=== PATIENT | male | born 1940 | race Hispanic/Latino ===

== ENCOUNTER 2021-04-17 20:26 | Emergency (ER) | payer MEDICARE ==
--- NOTE | 2021-04-17 21:38 | Emergency Department Report ---
ED Psych HPI - General Chief Complaint: Psych Stated Complaint: SUICIDAL/DEMENTIA/MH EVAL Time Seen by Provider: 04/17/21 21:33 Source: patient Mode of arrival: Ambulatory Limitations: No Limitations - History of Present Illness Initial Comments: Patient is an 80-year-old male that presents emergency room with altered mental status, dementia, agitation, suicidal ideation with a plan. Patient is currently alert and oriented x2. Patient is disoriented to time and situation. History per patient and son that is sitting at bedside. Son states that the patient is from [place] but the patient recently moved to the patient's daughter's house here in [place]. Patient was moved from [place] here because the patient was found wandering multiple times around his cabin in [place] and found driving disoriented and lost in the town that he lives in there. Patient was taken to the hospital there and [place] and was deemed medically clear but having worsening dementia and behavioral disorder. Patient was then moved here to [place] and the patient is having the same problem with his family members. Patient was [place] Patient is agitated towards his family members. Patient is aggressive towards family. Patient was brought in by his son for stabilization. Son states that the patient also threatened to kill himself by overdosing on his pills. Patient denies homicidal ideations. Patient states he did say that he might have said that but does not quite remember. Patient states he does not want to live with his daughter and wants to go back to his house in [place] or [place]. Patient denies recent travel. Patient denies recent international travel. Pat ient denies exposure to the novel coronavirus. Patient denies sick contacts. Patient denies fever and chills. Patient denies cough. Patient denies diarrhea. Patient denies coming in contact with anybody with symptoms of the novel coronavirus. MD Complaint: suicidal ideation, feels depressed, altered mental status -: Sudden Associated Psychiatric Symptoms: none, suicidal ideation History of same: Yes Quality: constant Improves With: none Worsens With: none Context: significant life stressor Associated Symptoms: confusion. denies: headache, shortness of breath, nausea, vomiting, syncope, insomnia If Self Harm: admits thoughts of, has plan - Related Data Home Medications Medication Instructions Recorded Confirmed Last Taken Aspirin [Aspirin BABY CHEW TAB] 81 mg PO QDAY 04/18/21 04/18/21 04/18/21 AtorvaSTATin [Lipitor] 40 mg PO QHS 04/18/21 04/18/21 Unknown Clopidogrel [Plavix] 75 mg PO QDAY 04/18/21 04/18/21 04/18/21 OLANzapine [ZyPREXA] 5 mg PO BID 04/18/21 04/18/21 04/18/21 amLODIPine 10 mg PO DAILY 04/18/21 04/18/21 04/18/21 Allergies Allergy/AdvReac Type Severity Reaction Status Date / Time No Known Allergies Allergy Unverified 04/17/21 20:42 ED Review of Systems ROS: Stated complaint: SUICIDAL/DEMENTIA/MH EVAL Other details as noted in HPI Constitutional: denies: chills, fever Eyes: denies: eye pain, eye discharge, vision change ENT: denies: ear pain, throat pain Respiratory: denies: cough, shortness of breath, wheezing Cardiovascular: denies: chest pain, palpitations Endocrine: no symptoms reported Gastrointestinal: denies: abdominal pain, nausea, diarrhea Genitourinary: denies: urgency, dysuria Musculoskeletal: denies: back pain, joint swelling, arthralgia Skin: denies: rash, lesions Neurological: denies: headache, weakness, paresthesias Psychiatric: as per HPI, depression, suicidal thoughts. denies: anxiety Hematological/Lymphatic: denies: easy bleeding, easy bruising ED Past Medical Hx - Past Medical History Previous Medical History?: Yes Hx Hypertension: Yes Hx Diabetes: No Hx Dementia: Yes - Surgical History Past Surgical History?: No - Family History Family history: no significant - Social History Smoking Status: Never Smoker Substance Use Type: None - Medications Home Medications: Home Medications Medication Instructions Recorded Confirmed Last Taken Type Aspirin [Aspirin BABY CHEW TAB] 81 mg PO QDAY 04/18/21 04/18/21 04/18/21 History AtorvaSTATin [Lipitor] 40 mg PO QHS 04/18/21 04/18/21 Unknown History Clopidogrel [Plavix] 75 mg PO QDAY 04/18/21 04/18/21 04/18/21 History OLANzapine [ZyPREXA] 5 mg PO BID 04/18/21 04/18/21 04/18/21 History amLODIPine 10 mg PO DAILY 04/18/21 04/18/21 04/18/21 History ED Physical Exam - General Limitations: No Limitations General appearance: alert, in no apparent distress - Head Head exam: Present: atraumatic, normocephalic - Eye Eye exam: Present: normal appearance - ENT ENT exam: Present: mucous membranes moist - Neck Neck exam: Present: normal inspection - Respiratory Respiratory exam: Present: normal lung sounds bilaterally. Absent: respiratory distress - Cardiovascular Cardiovascular Exam: Present: regular rate, normal rhythm. Absent: systolic murmur, diastolic murmur, rubs, gallop - GI/Abdominal GI/Abdominal exam: Present: soft, normal bowel sounds - Rectal Rectal exam: Present: deferred - Extremities Exam Extremities exam: Present: normal inspection - Back Exam Back exam: Present: normal inspection - Neurological Exam Neurological exam: Present: alert, altered - Psychiatric Psychiatric exam: Present: normal affect, normal mood - Skin Skin exam: Present: warm, dry, intact, normal color. Absent: rash ED Course Vital Signs 04/17/21 04/17/21 04/17/21 20:44 21:35 21:46 Temperature 98.7 F Pulse Rate 72 Respiratory 16 Rate Blood Pressure 174/80 174/87 O2 Sat by Pulse 96 97 97 Oximetry 04/17/21 04/17/21 04/17/21 22:00 22:16 22:30 Temperature Pulse Rate Respiratory Rate Blood Pressure 152/73 152/73 152/73 O2 Sat by Pulse 92 94 94 Oximetry 04/17/21 04/17/21 04/17/21 22:34 22:46 23:00 Temperature Pulse Rate Respiratory Rate Blood Pressure 152/73 152/73 152/73 O2 Sat by Pulse 95 95 97 Oximetry 04/17/21 04/17/21 04/17/21 23:16 23:30 23:46 Temperature Pulse Rate Respiratory Rate Blood Pressure 152/73 152/73 152/73 O2 Sat by Pulse 96 95 97 Oximetry 04/18/21 04/18/21 04/18/21 00:00 00:16 00:30 Temperature Pulse Rate Respiratory Rate Blood Pressure 145/64 145/64 145/64 O2 Sat by Pulse 95 95 90 Oximetry 04/18/21 04/18/21 04/18/21 00:46 01:00 01:16 Temperature Pulse Rate Respiratory Rate Blood Pressure 145/64 130/54 130/54 O2 Sat by Pulse 95 94 92 Oximetry 04/18/21 04/18/2121 01:30 01:46 02:00 Temperature Pulse Rate Respiratory Rate Blood Pressure 130/54 130/54 138/57 O2 Sat by Pulse 95 96 93 Oximetry 04/18/21 04/18/21 04/18/21 02:16 02:30 12:09 Temperature Pulse Rate Respiratory Rate Blood Pressure 138/57 138/57 138/57 O2 Sat by Pulse 96 92 95 Oximetry 04/18/21 04/18/21 04/18/21 12:16 12:30 12:46 Temperature Pulse Rate Respiratory Rate Blood Pressure 138/57 138/57 162/78 O2 Sat by Pulse 95 96 95 Oximetry 04/18/21 04/18/21 13:00 13:16 Temperature Pulse Rate Respiratory Rate Blood Pressure 149/70 149/70 O2 Sat by Pulse 95 Oximetry - Reevaluation(s) Reevaluation #1: Patient is medically cleared. Patient will remain in the ER as an ER hold until the patient is cleared by our psychiatry team. Patient's final disposition will come from our psychiatry mental health team. Patient is resting comfortably. I discussed all results and clinical findings with patient. I discussed plan of care with patient. Patient agrees with plan of care. 04/17/21 23:58 ED Medical Decision Making - Lab Data Result diagrams: 04/17/21 21:42 04/17/21 21:42 - Radiology Data Radiology results: report reviewed CT HEAD WITHOUT CONTRAST INDICATION / CLINICAL INFORMATION: Altered Mental Status, Medical Clearance. TECHNIQUE: All CT scans at this location are performed using CT dose reduction for ALARA by means of automated exposure control. COMPARISON: None available. FINDINGS: BRAIN PARENCHYMA: No acute intracranial hemorrhage. No evidence of recent i nfarct. No mass effect or midline shift. White matter chronic small vessel ischemic changes. 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 VENTRICULAR SYSTEM/EXTRA-AXIAL SPACES: Age-related cerebral atrophy. No extra- axial fluid collection. ORBITS: Normal as visualized. SKELETAL SYSTEM/SOFT TISSUES: Normal bones and soft tissues. PARANASAL SINUSES/MASTOID AIR CELLS: No significant abnormality. ADDITIONAL FINDINGS: None. IMPRESSION: 1. No acute intracranial abnormality. 2. Chronic ischemic changes, as above. - Medical Decision Making Patient is an 80-year-old male who presents emergency room with aggressive behavior, agitation and worsening mentation. Patient has history of dementia. Patient brought in by the patient's son. History per son and patient. Patient has had multiple bouts of wandering off as well as increased confusion. Patient's family brought him here for possible inpatient stabilization. Patient had labs done which were essentially unremarkable. Patient had a CT scan due to the altered mental status and confusion and agitation. Patient's CT was negative for acute findings. Patient is medically cleared. Patient will remain in the ER as an ER hold until the patient is cleared from a psychiatric [facility] or patient is transferred to a more appropriate facility. Patient final disposition will come from our psychiatry mental health team. - Differential Diagnosis Dementia, behavior disorder, agitation, altered mental status Critical care attestation.: If time is entered above; I have spent that time in minutes in the direct care of this critically ill patient, excluding procedure time. ED Disposition Clinical Impression: Acute psychosis, Agitation, Aggressive behavior Disposition: DC-01 TO HOME OR SELFCARE Is pt being admited?: No Does the pt Need Aspirin: No Condition: Stable Instructions: Confusion, Psychosis, Dementia Additional Instructions: OUTPATIENT MENTAL HEALTH RESOURCES [facility], [facility] Kermit Keen MD: [address] [place] [address] [place] [address] [facility]: [facility] [address] [place] [address] [place] [address] [phone] [facility]: [facility] Healthcare: [address] [place] [address] [facility] [id number] [facility]: Chris Joyce MD: [address] [facility] [id number] [facility]: [address] [place] [address] [phone] MD CRISIS AND ACCESS LINE: Referrals: PRIMARY CAREMD [Primary Care Provider] - 3-5 Days Time of Disposition: 00:01
[2021-04-17 22:09] LABS: Basophils # (Auto) 0.1 K/mm3 (0.0-0.1); Basophils % (Auto) 1.1 % (0.0-1.8); Eosinophils % (Auto) 0.4 % (0.0-4.3); Hematocrit 43.2 % (35.5-45.6); Hemoglobin 14.7 gm/dl (11.8-15.2); Lymphocytes % (Auto) 13.9 % (13.4-35.0); Mean Corpuscular HGB Conc 34 % (32-34); Mean Corpuscular Volume 87 fl (84-94); Monocytes # (Auto) 0.6 K/mm3 (0.0-0.8); Platelet Count 221 K/mm3 (140-440); Red Blood Count 4.95 M/mm3 (3.65-5.03); Red Cell Distribution Width 14.7 % (13.2-15.2)
[2021-04-17 22:32] LABS: Alanine Aminotransferase 16 units/L (7-56); Albumin 4.2 g/dL (3.9-5); BUN/Creatinine Ratio 18; Blood Urea Nitrogen 16 mg/dL (9-20); Calcium 8.8 mg/dL (8.4-10.2); Hemolysis Index 4
[2021-04-17 23:09] LABS: Bacteria,Urine 1+ /HPF (Negative); Bilirubin,Urine NEG (Negative); Blood,Urine NEG (Negative); Color,Urine Yellow (Yellow); Hyaline Casts,Urine 1 /LPF; Mucus,Urine FEW /HPF; Protein,Urine <15 mg/dL mg/dL (Negative); Urobilinogen,Urine < 2.0 mg/dL (<2.0)
[2021-04-17 23:10] LABS: Amphetamine Screen,Urine Negative; Benzodiazepines Screen,Urine Negative; Cannabinoid Screen,Urine Negative; Cocaine Screen,Urine Negative; Methadone Screen,Urine Negative; Opiate Screen,Urine Negative
--- NOTE | 2021-04-17 23:24 | Cat Scan Report ---
CT HEAD WITHOUT CONTRAST INDICATION / CLINICAL INFORMATION: Altered Mental Status, Medical Clearance. TECHNIQUE: All CT scans at this location are performed using CT dose reduction for ALARA by means of automated exposure control. COMPARISON: None available. FINDINGS: BRAIN PARENCHYMA: No acute intracranial hemorrhage. No evidence of recent infarct. No mass effect or midline shift. White matter chronic small vessel ischemic changes. Remote infarct noted within both f rontal lobes and left occipital lobe. VENTRICULAR SYSTEM/EXTRA-AXIAL SPACES: Age-related cerebral atrophy. No extra-axial fluid collection. ORBITS: Normal as visualized. SKELETAL SYSTEM/SOFT TISSUES: Normal bones and soft tissues. PARANASAL SINUSES/MASTOID AIR CELLS: No significant abnormality. ADDITIONAL FINDINGS: None. IMPRESSION: 1. No acute intracranial abnormality. 2. Chronic ischemic changes, as above. Signer Name: Jose David Thomson MD Signed: 04/17/2021 11:20 PM Workstation Name: [id number]
--- NOTE | 2021-04-18 12:16 | Consultation ---
History of Present Illness - Reason for Consult Consult date: 04/18/21 Reason for consult: SI/ Dementia - History of Present Psychiatric Illness Per ED Note: Patient is an 80-year-old male that presents emergency room with altered mental status, dementia, agitation, suicidal ideation with a plan. Patient is currently alert and oriented x2. Patient is disoriented to time and situation. History per patient and son that is sitting at bedside. Son states that the patient is from [place] but the patient recently moved to the patient's daughter's house here in [place]. Patient was moved from [place] here because the patient was found wandering multiple times around his cabin in [place] and found driving disoriented and lost in the town that he lives in there. Patient was taken to the hospital there and [place] and was deemed medically clear but having worsening dementia and behavioral disorder. Patient was then moved here to [place] and the patient is having the same problem with his family members. [place] Patient is agitated towards his family members. Patient is aggressive towards family. Patient was brought in by his son for stabilization. Son states that the patient also threatened to kill himself by overdosing on his pills. Patient denies homicidal ideations. Patient states he did say that he might have said that but does not quite remember. Patient states he does not want to live with his daughter and wants to go back to his house [place]. Frank Fang is a 80 year old male with a history of Dementia who presents to ED for agitation and suicidal ideation. In my interview with the patient, he presents with some confusion. The patient reports that his son brought him here but he is not sure why. He states that he overdosed on his pills about 30 days ago. The patient denies any current suicidal/homicidal thoughts and denies hallucinations. PAST PSYCHIATRIC HISTORY Diagnoses: Dementia Suicide attempts or Self-harm behavior: Yes x1 Prior psychiatric hospitalizations:Denies Substance Abuse history: Denies Previous psychiatric medications tried: Denied Outpatient treatment: Denied SOCIAL HISTORY Marital Status: Unknown Living Arrangements: Lives with family Employment Status: Retired Access to guns/weapons: Denied Education: unknown History of Abuse: Denied Legal History: None reported REVIEW OF SYSTEMS Constitutional: Negative for weight loss ENT: Negative for stridor Respiratory: Negative for cough or hemoptysis All other systems reviewed and are negative MENTAL STATUS EXAMINATION General Appearance and Behavior: Age appropriate, dressed appropriately, calm and cooperative Cooperation: Participating Psychomotor Behavior: psychomotor normal Mood: calm Affect and affective range: Congruent with stated mood Thought Process: Tangential Thought Content: Reality Oriented Speech: Normal volume, Regular rate and rhythm, Intellectual Functioning: Average Suicidal Ideation: Denied Homicidal Ideation: Denied Hallucinations: Denied Delusions: None elicited Impulse Control: Questionable Insight and Judgment: Limited insight and judgment, Memory: Impaired Attention: Distractible Orientation: Alert, oriented to self Assessment and Plan (1) Unspecified Dementia with behavioral disturbance-F03.91 Treatment plan Continue 1013 Risks, benefits and alternatives of medications discussed with the patient, questions answered and consent obtained from patient. PSYCHOTHERAPY: Supportive psychotherapy provided MEDICAL: Per primary team DELIRIUM PRECAUTIONS: Please re-orient patient frequently, keep lights on during the day, and minimize benzodiazepines and opiates as these medications could worsen patient's confusion. STOCK FEEDER: Per medical team DISPOSITION: Recommend acute inpatient psychiatric hospitalization at this time. FOLLOW-UP: Will follow Thank you for the consult. Please contact with any questions and/or concerns. Case staffed with Dr. Solares Medications and Allergies Allergies Allergy/AdvReac Type Severity Reaction Status Date / Time No Known Allergies Allergy Unverified 04/17/21 20:42 Home Medications Medication Instructions Recorded Confirmed Last Taken Type Aspirin [Aspirin BABY CHEW TAB] 81 mg PO QDAY 04/18/21 04/18/21 04/18/21 History AtorvaSTATin [Lipitor] 40 mg PO QHS 04/18/21 04/18/21 Unknown History Clopidogrel [Plavix] 75 mg PO QDAY 04/18/21 04/18/21 04/18/21 History OLANzapine [ZyPREXA] 5 mg PO BID 04/18/21 04/18/21 04/18/21 History amLODIPine 10 mg PO DAILY 04/18/21 04/18/21 04/18/21 History Mental Status Exam - Vital signs Last Vital Signs Temp 98.7 F 04/17/21 20:44 Pulse 72 04/17/21 20:44 Resp 16 04/17/21 20:44 BP 138/57 04/18/21 02:30 Pulse Ox 92 04/18/21 02:30 Results Result Diagrams: 04/17/21 21:42 04/17/21 21:42 Abnormal lab results 07/04/17/21 04/17/21 Range/Units 21:42 21:42 21:42 Davis % (Auto) 8.0 H (0.0-7.3) % Lymph # (Auto) 1.0 L (1.2-5.4) K/mm3 Seg Neutrophils % 76.6 H (40.0-70.0) % Potassium 3.5 L (3.6-5.0) mmol/L Glucose 103 H (75-100) mg/dL Salicylates < 0.3 L (2.8-20.0) mg/dL Acetaminophen (10.0-30.0) ug/mL 04/17/21 Range/Units 21:42 Davis % (Auto) (0.0-7.3) % Lymph # (Auto) (1.2-5.4) K/mm3 Seg Neutrophils % (40.0-70.0) % Potassium (3.6-5.0) mmol/L Glucose (75-100) mg/dL Salicylates (2.8-20.0) mg/dL Acetaminophen 5.0 L (10.0-30.0) ug/mL All other labs normal.
[2021-04-18 13:19] VITALS: BP 149/70
[2021-04-18] MEDS ORDERED: ASPIRIN EC 81 MG TAB PO SCH (15:00)
[2021-04-18] MEDS ORDERED: amLODIPine 5 MG TAB PO ONE (15:13)
--- NOTE | 2021-04-18 15:36 | XRay Report ---
CHEST 1 VIEW 04/18/2021 2:26 PM INDICATION / CLINICAL INFORMATION: med clearance. COMPARISON: None available. FINDINGS: SUPPORT DEVICES: None. HEART / MEDIASTINUM: No significant abnormality. LUNGS / PLEURA: No significant pulmonary or pleural abnormality. No pneumothorax. ADDITIONAL FINDINGS: No significant additional findings. IMPRESSION: 1. No acute findings. Signer Name: Mgiuel Lawrence MD Signed: 04/18/2021 3:32 PM Workstation Name: [id number]
[2021-04-18] MEDS ORDERED: ASPIRIN 325 MG TAB PO SCH (16:00)
[2021-04-18] MEDS ORDERED: CLOPIDOGREL 75 MG TAB PO SCH (16:00)
--- NOTE | 2021-04-18 17:51 | Event Note ---
Date: 04/18/21 80-year-old male with history of dementia who was brought in for worsening agitation and aggression, wandering off, and threatening to kill himself. He was seen by my colleague and was medically cleared for psychiatric evaluation assessment. He was seen by the psychiatry/mental health team who recommended further inpatient treatment. The patient was accepted to the fifth floor [facility] psych unit and was discharged to the fifth floor.
[2021-04-19] MEDS ORDERED: amLODIPine 5 MG TAB PO SCH (10:00)
[2021-04-19] MEDS ORDERED: amLODIPine 10 MG TAB PO SCH (10:00)
== END 2021-04-18 17:44 | disposition home or self-care (01) ==
LOC: ED 20:26 → EEVIPCON 20:26 → ED 04-18 17:44
DX: F23 Brief psychotic disorder (principal); Z20.822 Contact with and (suspected) exposure to COVID-19; R45.4 Irritability and anger; R45.1 Restlessness and agitation; F03.90 Unspecified dementia, unspecified severity, without behavioral disturbance, psychotic disturbance, mood disturbance, and anxiety; Z79.899 Other long term (current) drug therapy
CPT/HCPCS: 36415; 70450; 71045; 80053; 80307; 81001; 84443; 85025; 99285; U0003; 80320; G0480

== ENCOUNTER 2021-04-18 15:39 | Inpatient (IN) | payer MEDICARE ==
[2021-04-19 01:24] LABS: Basophils % (Auto) 0.8 % (0.0-1.8); Eosinophils % (Auto) 1.2 % (0.0-4.3); Hematocrit 42.2 % (35.5-45.6); Hemoglobin 14.6 gm/dl (11.8-15.2); Lymphocytes % (Auto) 18.3 % (13.4-35.0); Mean Corpuscular HGB Conc 35 % (32-34); Mean Corpuscular Volume 87 fl (84-94); Monocytes % (Auto) 11.4 % (0.0-7.3); Platelet Count 212 K/mm3 (140-440); Red Blood Count 4.88 M/mm3 (3.65-5.03); Red Cell Distribution Width 14.2 % (13.2-15.2)
[2021-04-19 01:30] LABS: Basophils # (Auto) 0.1 K/mm3 (0.0-0.1); Eosinophils # (Auto) 0.1 K/mm3 (0.0-0.4); Lymphocytes # (Auto) 1.2 K/mm3 (1.2-5.4); Monocytes # (Auto) 0.7 K/mm3 (0.0-0.8)
[2021-04-19 01:46] LABS: Hepatitis B Surface Antigen Non-Reactive (Negative); Hepatitis C Virus Antibody Non-Reactive (NonReactive)
[2021-04-19 01:47] LABS: Alanine Aminotransferase 13 units/L (7-56); Albumin 4.2 g/dL (3.9-5); BUN/Creatinine Ratio 18; Blood Urea Nitrogen 20 mg/dL (9-20); Calcium 9.2 mg/dL (8.4-10.2); Chol/HDL Ratio 2.26 %; HDL Cholesterol 45 mg/dL (40-59); Hemolysis Index 8; LDL Cholesterol,Direct 50 mg/dL (50-130)
[2021-04-19] MEDS: CLOPIDOGREL 75 MG TAB PO SCH (09:24)
[2021-04-19] MEDS: ASPIRIN 81 MG TAB CHEW PO SCH (09:24)
[2021-04-19] MEDS: amLODIPine 10 MG TAB PO SCH (09:24)
--- NOTE | 2021-04-19 10:22 | Consultation ---
History of Present Illness - Reason for Consult Consult date: 04/19/21 Medical management Requesting physician: SENG COLES - History of Present Illness Leoncio Marie is a 80-year-old male with past medical history of hypertension, prior stroke 13 years ago, hyperlipidemia admitted to the [facility] psych unit for self-harm attempt. Hospitalist team consulted for medical management of underlying chronic conditions.. On encounter, patient states that he is in excellent health. He states that he has overdosed on his medications in the past however when asked if this was intentional he states that " sometimes I mess up my pills I need to get a pill counter". He denies any illicit drug use, prior use of psychiatric medication, any prior psychiatric history. He states that besides the stroke 13 years ago, he has not had any major medical problems which include WI, PE, DVT, diabetes, hypothyroidism. He states his blood pressure is in good control in general. He does not follow with a primary care physician although states that he did follow with one several years back. He had no acute complaints on my encounter. Remainder of ROS negative except for stated above. Past History Past Medical History: hypertension, hyperlipidemia, stroke Past Surgical History: No surgical history Social history: , Lives alone, smoking (denies), alcohol abuse (denies), IV drug use (denies) Family history: CAD, cancer Medications and Allergies Allergies Allergy/AdvReac Type Severity Reaction Status Date / Time No Known Allergies Allergy Unverified 04/17/21 20:42 Home Medications Medication Instructions Recorded Confirmed Last Taken Type Aspirin [Aspirin BABY CHEW TAB] 81 mg PO QDAY 04/18/21 04/18/21 04/18/21 History AtorvaSTATin [Lipitor] 40 mg PO QHS 04/18/21 04/18/21 Unknown History Clopidogrel [Plavix] 75 mg PO QDAY 04/18/21 04/18/21 04/18/21 History OLANzapine [ZyPREXA] 5 mg PO BID 04/18/21 04/18/21 04/18/21 History amLODIPine 10 mg PO DAILY 04/18/21 04/18/21 04/18/21 History Active Meds: Active Medications Amlodipine Besylate (Amlodipine 10 Mg Tab) 10 mg PO DAILY [facility] Last Admin: 04/19/21 09:24 Dose: 10 mg Documented by: Aspirin (Aspirin 81 Mg Tab Chew) 81 mg PO QDAY [facility] Last Admin: 04/19/21 09:24 Dose: 81 mg Documented by: Atorvastatin Calcium (Atorvastatin 40 Mg Tab) 40 mg PO QHS [facility] Last Admin: 04/18/21 21:06 Dose: 40 mg Documented by: Clopidogrel Bisulfate (Clopidogrel 75 Mg Tab) 75 mg PO QDAY [facility] Last Admin: 04/19/21 09:24 Dose: 75 mg Documented by: Review of Systems All systems: negative Exam - Physical Exam Narrative exam: Physical Exam: GENERAL APPEARANCE: Well developed, well nourished, alert and cooperative, and appears to be in no acute distress. Pleasant elderly appearing gentleman. HEAD: normocephalic. EYES: PERRL, EOMI. Vision is grossly intact. EARS: No gross deformities NOSE: No nasal discharge. THROAT: Oral cavity and pharynx normal. No inflammation, swelling, exudate, or lesions. NECK: Neck supple, non-tender without lymphadenopathy, masses or thyromegaly. CARDIAC: Normal S1 and S2. No S3, S4 or murmurs. Rhythm is regular. There is no peripheral edema, cyanosis or pallor. Extremities are warm and well perfused. Capillary refill is less than 2 seconds. No carotid bruits. LUNGS: Clear to auscultation and percussion without rales, rhonchi, wheezing or diminished breath sounds. ABDOMEN: Positive bowel sounds. Soft, nondistended, nontender. No guarding or rebound. No masses. MUSKULOSKELETAL: Adequately aligned spine. ROM intact spine and extremities. No joint erythema or tenderness. Normal muscular development. Normal gait. BACK: Examination of the spine reveals normal gait and posture EXTREMITIES: No significant deformity or joint abnormality. No edema. Peripheral pulses intact. No varicosities. NEUROLOGICAL: CN II-XII intact. Strength and sensation symmetric and intact throughout. Reflexes 2+ throughout. PSYCHIATRIC: The mental examination revealed the patient was oriented to person, place, and time. Easily distractible. Thought process appears to be impaired. Appears to have some dementia. - Constitutional Vitals: Temp Pulse Resp BP Pulse Ox 97.6 F 60 18 147/79 99 04/19/21 07:46 04/19/21 09:24 04/19/21 07:46 04/19/21 09:24 04/19/21 07:46 Results - Labs CBC & Chem 7: 04/19/21 00:32 04/19/21 00:32 Labs: Abnormal lab results 04/19/21 04/19/21 04/19/21 Range/Units 00:32 00:32 00:32 MCHC 35 H (32-34) % Dickenson % (Auto) 11.4 H (0.0-7.3) % Carbon Dioxide 32 H D (22-30) mmol/L TSH 6.650 H (0.270-4.200) mlU/mL Assessment and Plan Assessment: 1. Dementia with behavioral disturbance 2. Hypertension 3. Hyperlipidemia 4. Prior history of stroke 5. Elevated TSH Plan: -Reviewed laboratory work which was normal with the exception of elevated TSH 6.650. This likely merits investigation in the future in the outpatient setting however does not merit treatment at this time. Would recommend a repeat TSH in 2 to 4 weeks. -Continue home amlodipine, aspirin, atorvastatin, clopidogrel. -Psych medication management as per psychiatry team. -We will continue to follow along. - Patient Problems (1) Dementia with behavioral disturbance Current Visit: Yes Status: Acute (2) Hypertension Current Visit: Yes Status: Acute (3) History of stroke Current Visit: Yes Status: Acute (4) Elevated TSH Current Visit: Yes Status: Acute (5) Hyperlipidemia Current Visit: Yes Status: Acute
--- NOTE | 2021-04-19 11:50 | History and Physical Report ---
GP History & Physical - History of Present Illness Date of admission: 04/18/21 Date of Examination: 04/19/21 Reason for Admission: Danger to self, Failure of Outpatient Treatment, Severe anxiety/depression History of Present Illness: Leoncio Marie is an 80y/o male patient who was admitted to [facility] for taking pills in a self harm attempt. During my evaluation, the patient is confused. He says he's been depressed. He says "I overdosed on pills." The patient says he's been depressed. He could not tell me why he was depressed. He denies hallucinations. He also denies being on any psych meds. The patient denies illicit drugs, alcohol or nicotine use. He says he "lives in [place]." PAST PSYCHIATRIC HISTORY: Diagnoses: Denies Suicide attempts or Self-harm behavior: Yes Prior psychiatric hospitalizations: Denies Substance Abuse history: Denies Previous psychiatric medications tried: Denies Outpatient treatment: Denies PAST MEDICAL HISTORY: None reported or document Family Psychiatric History: None reported or documented SOCIAL HISTORY Marital Status: Living Arrangements: "[place]" Employment Status: Disabled Access to guns/weapons: denies Education: History of Abuse: denies Legal History: denies REVIEW OF SYSTEMS Constitutional: Negative for weight loss ENT: Negative for stridor Respiratory: Negative for cough or hemoptysis All other systems reviewed and are negative MENTAL STATUS EXAMINATION General Appearance and Behavior: Age appropriate, wearing appropriate clothes, cooperative polite with questioning, good eye contact, cooperative Cooperation: cooperative Psychomotor Behavior: Psychomotor normal Mood: depressed Affect and affective range: congruent with stated mood Thought Process: impaired Thought Content: SI, depression Speech: Normal volume, Regular rate and rhythm Suicidal Ideation: Yes Homicidal Ideation: Denies hallucination: Denies Delusions: None elicited Impulse Control: Intact Insight and Judgment: Poor Memory: Intact Attention: Divided Orientation: Alert and oriented Diagnoses: Dementia with Behavioral Disturbance Treatment Plan Patient admitted for inpatient psychiatric evaluation, medication adjustment and close monitoring The patient's behavior, mood, sleep and appetite will be closely monitored. Patient enrolled in individual and group therapeutic sessions and encouraged to attend. Patient provided with a safe and structured environment. Patient's physical health needs will be addressed by the Hospitalist. Hospitalist Consulted Labs including CBC, CMP, Lipid profile and Hemoglobin A1C levels ordered for baseline reference Social Assessment will be completed and the Cassandra Architect will work with patient and family to ensure a suitable and safe disposition Medication adjustment will be made as clinically indicated Start home olanzapine 5mg po bid Start Zoloft 25mg po daily Usual Wellness Rastafari/Preservation: - Start Trazodone 50 mg po QHS & 50 mg po QHS PRN between 10 PM & 2 AM for insomnia - Start Melatonin 5 mg po QHS to promote circadian rhythm The patient agreed on the treatment plan, understood the risk, benefit, alternative treatment, potential consequence of no treatment, and gave informed consent. Estimated days: 7 Post hospital care: primary care provider, psychiatric provider Case staffed with Dr. Solares Legal Status: Voluntary Reaction to Hospitalization: Accepting Medications and Allergies Allergies Allergy/AdvReac Type Severity Reaction Status Date / Time No Known Allergies Allergy Unverified 04/17/21 20:42 Home Medications Medication Instructions Recorded Confirmed Last Taken Type Aspirin [Aspirin BABY CHEW TAB] 81 mg PO QDAY 04/18/21 04/18/21 04/18/21 History AtorvaSTATin [Lipitor] 40 mg PO QHS 04/18/21 04/18/21 Unknown History Clopidogrel [Plavix] 75 mg PO QDAY 04/18/21 04/18/21 04/18/21 History OLANzapine [ZyPREXA] 5 mg PO BID 04/18/21 04/18/21 04/18/21 History amLODIPine 10 mg PO DAILY 04/18/21 04/18/21 04/18/21 History Active Meds: Active Medications Amlodipine Besylate (Amlodipine 10 Mg Tab) 10 mg PO DAILY [facility] Last Admin: 04/19/21 09:24 Dose: 10 mg Documented by: Aspirin (Aspirin 81 Mg Tab Chew) 81 mg PO QDAY [facility] Last Admin: 04/19/21 09:24 Dose: 81 mg Documented by: Atorvastatin Calcium (Atorvastatin 40 Mg Tab) 40 mg PO QHS [facility] Last Admin: 04/18/21 21:06 Dose: 40 mg Documented by: Clopidogrel Bisulfate (Clopidogrel 75 Mg Tab) 75 mg PO QDAY [facility] Last Admin: 04/19/21 09:24 Dose: 75 mg Documented by: Results - Results Labs/Vitals: Laboratory Last Values WBC 6.7 K/mm3 (4.5-11.0) 04/19/21 00:32 RBC 4.88 M/mm3 (3.65-5.03) 04/19/21 00:32 Hgb 14.6 gm/dl (11.8-15.2) 04/19/21 00:32 Hct 42.2 % (35.5-45.6) 04/19/21 00:32 MCV 87 fl (84-94) 04/19/21 00:32 MCH 30 pg (28-32) 04/19/21 00:32 MCHC 35 % (32-34) H 04/19/21 00:32 RDW 14.2 % (13.2-15.2) 04/19/21 00:32 Plt Count 212 K/mm3 (140-440) 04/19/21 00:32 Lymph % (Auto) 18.3 % (13.4-35.0) 04/19/21 00:32 [place] % (Auto) 11.4 % (0.0-7.3) H 04/19/21 00:32 Eos % (Auto) 1.2 % (0.0-4.3) 04/19/21 00:32 Baso % (Auto) 0.8 % (0.0-1.8) 04/19/21 00:32 Lymph # (Auto) 1.2 K/mm3 (1.2-5.4) 04/19/21 00:32 [place] # (Auto) 0.7 K/mm3 (0.0-0.8) 04/19/21 00:32 Eos # (Auto) 0.1 K/mm3 (0.0-0.4) 04/19/21 00:32 Baso # (Auto) 0.1 K/mm3 (0.0-0.1) 04/19/21 00:32 Seg Neutrophils % 68.3 % (40.0-70.0) 04/19/21 00:32 Seg Neutrophils # 4.6 K/mm3 (1.8-7.7) 04/19/21 00:32 Sodium 144 mmol/L (137-145) 04/19/21 00:32 Potassium 4.0 mmol/L (3.6-5.0) 04/19/21 00:32 Chloride 104.3 mmol/L (98-107) 04/19/21 00:32 Carbon Dioxide 32 mmol/L (22-30) H D 04/19/21 00:32 Anion Gap 12 mmol/L 04/19/21 00:32 BUN 20 mg/dL (9-20) 04/19/21 00:32 Creatinine 1.1 mg/dL (0.8-1.3) 04/19/21 00:32 Estimated GFR > 60 ml/min 04/19/21 00:32 BUN/Creatinine Ratio 18 % 04/19/21 00:32 Glucose 96 mg/dL (75-100) 04/19/21 00:32 POC Glucose 104 mg/dL (70-105) 04/18/21 19:39 Hemoglobin A1c 5.6 % (4-6) 04/19/21 00:32 Calcium 9.2 mg/dL (8.4-10.2) 04/19/21 00:32 Total Bilirubin 0.40 mg/dL (0.1-1.2) 04/19/21 00:32 AST 17 units/L (5-40) 04/19/21 00:32 ALT 13 units/L (7-56) 04/19/21 00:32 Alkaline Phosphatase 117 units/L (35-129) 04/19/21 00:32 Total Protein 6.5 g/dL (6.3-8.2) 04/19/21 00:32 Albumin 4.2 g/dL (3.9-5) 04/19/21 00:32 Albumin/Globulin Ratio 1.8 % 04/19/21 00:32 Triglycerides 56 mg/dL (2-149) 04/19/21 00:32 Cholesterol 102 mg/dL (50-199) 04/19/21 00:32 LDL Cholesterol Direct 50 mg/dL (50-130) 04/19/21 00:32 HDL Cholesterol 45 mg/dL (40-59) 04/19/21 00:32 Cholesterol/HDL Ratio 2.26 % 04/19/21 00:32 TSH 6.650 mlU/mL (0.270-4.200) H 04/19/21 00:32 Hepatitis A IgM Ab Non-reactive (NonReactive) 04/19/21 00:32 Hep Bs Antigen Non-reactive (Negative) 04/19/21 00:32 Hep B Core IgM Ab Non-reactive (NonReactive) 04/19/21 00:32 Hepatitis C Antibody Non-reactive (NonReactive) 04/19/21 00:32 Last Vital Signs Temp 97.6 F 04/19/21 07:46 Pulse 60 04/19/21 09:24 Resp 18 04/19/21 07:46 BP 147/79 04/19/21 09:24 Pulse Ox 99 04/19/21 07:46 Physical Examination - Constitutional Vitals: Vital Signs Temp Pulse Resp BP Pulse Ox 97.6 F 60 18 147/79 99 04/19/21 07:46 04/19/21 09:24 04/19/21 07:46 04/19/21 09:24 04/19/21 07:46 Temperature -Last 24 Hours Temperature 97.6 F Temperature 98.1 F Temperature 98.4 F Temperature 98.6 F Mental Status Exam - Vital signs Last Vital Signs Temp 97.6 F 04/19/21 07:46 Pulse 60 04/19/21 09:24 Resp 18 04/19/21 07:46 BP 147/79 04/19/21 09:24 Pulse Ox 99 04/19/21 07:46 Physician Certification - Certification Statement Physician Certification Statement: This is an acknowledgement statement that IRMA RIDDLE is a 80 year old M who requires inpatient psychiatric admission for treatment which could reasonably be expected to improve the patient's condition for Estimated period of time patient will need to remain in the hospital: [ ] Plan for post-hospital care: [ ]
[2021-04-19] MEDS: SERTRALINE 25 MG TAB PO SCH (13:11)
--- NOTE | 2021-04-20 09:07 | Progress Note ---
Subjective Date of service: 04/20/21 Principal diagnosis: dementia with behavioral disturbance Subjective Comment: The patient was seen today, he says he feels okay. He is confused. He is now saying he took pills by mistake which is totally different than what he told me yesterday. He says "I didn't have a pill bottle and got mixed up." Called the son at [phone] as requested per nurse Hoang. Kept getting a "not in service" message. I also called the daughter, Aixa to discuss with her the patient's progress and treatment plan at [phone], did not get an answer. REVIEW OF SYSTEMS Constitutional: Negative for weight loss ENT: Negative for stridor Respiratory: Negative for cough or hemoptysis All other systems reviewed and are negative MENTAL STATUS EXAMINATION General Appearance and Behavior: Age appropriate, wearing appropriate clothes, cooperative polite with questioning, good eye contact, cooperative Cooperation: cooperative Psychomotor Behavior: Psychomotor normal Mood: depressed Affect and affective range: congruent with stated mood Thought Process: impaired Thought Content: SI, depression Speech: Normal volume, Regular rate and rhythm Suicidal Ideation: Yes Homicidal Ideation: Denies hallucination: Denies Delusions: None elicited Impulse Control: Intact Insight and Judgment: Poor Memory: Intact Attention: Divided Orientation: Alert and oriented Diagnoses: Dementia with Behavioral Disturbance Treatment Plan Patient admitted for inpatient psychiatric evaluation, medication adjustment and close monitoring The patient's behavior, mood, sleep and appetite will be closely monitored. Patient enrolled in individual and group therapeutic sessions and encouraged to attend. Patient provided with a safe and structured environment. Patient's physical health needs will be addressed by the Hospitalist. Hospitalist Consulted Labs including CBC, CMP, Lipid profile and Hemoglobin A1C levels ordered for baseline reference Social Assessment will be completed and the Fresh Meat Grader will work with patient and family to ensure a suitable and safe disposition Medication adjustment will be made as clinically indicated Continue olanzapine 5mg po bid Continue Zoloft 25mg po daily Usual Wellness Restorationism/Preservation: - Start Trazodone 50 mg po QHS & 50 mg po QHS PRN between 10 PM & 2 AM for insomnia - Start Melatonin 5 mg po QHS to promote circadian rhythm The patient agreed on the treatment plan, understood the risk, benefit, alternative treatment, potential consequence of no treatment, and gave informed consent. Estimated days: 7 Post hospital care: primary care provider, psychiatric provider Case staffed with Dr. Solares Legal Status: Voluntary Reaction to Hospitalization: Accepting Medications and Allergies Allergies Allergy/AdvReac Type Severity Reaction Status Date / Time No Known Allergies Allergy Unverified 04/17/21 20:42 Home Medications Medication Instructions Recorded Confirmed Last Taken Type Aspirin [Aspirin BABY CHEW TAB] 81 mg PO QDAY 04/18/21 04/18/21 04/18/21 History AtorvaSTATin [Lipitor] 40 mg PO QHS 04/18/21 04/18/21 Unknown History Clopidogrel [Plavix] 75 mg PO QDAY 04/18/21 04/18/21 04/18/21 History OLANzapine [ZyPREXA] 5 mg PO BID 04/18/21 04/18/21 04/18/21 History amLODIPine 10 mg PO DAILY 04/18/21 04/18/21 04/18/21 History Active Meds: Active Medications Amlodipine Besylate (Amlodipine 10 Mg Tab) 10 mg PO DAILY [facility] Last Admin: 04/19/21 09:24 Dose: 10 mg Documented by: Aspirin (Aspirin 81 Mg Tab Chew) 81 mg PO QDAY [facility] Last Admin: 04/19/21 09:24 Dose: 81 mg Documented by: Atorvastatin Calcium (Atorvastatin 40 Mg Tab) 40 mg PO QHS [facility] Last Admin: 04/19/21 21:03 Dose: 40 mg Documented by: Clopidogrel Bisulfate (Clopidogrel 75 Mg Tab) 75 mg PO QDAY [facility] Last Admin: 04/19/21 09:24 Dose: 75 mg Documented by: Olanzapine (Olanzapine 5 Mg Tab) 5 mg PO BID [facility] Last Admin: 04/19/21 21:03 Dose: 5 mg Documented by: Sertraline HCl (Sertraline 25 Mg Tab) 25 mg PO QDAY [facility] Last Admin: 04/19/21 13:11 Dose: 25 mg Documented by: Results - Results Labs/Vitals: Laboratory Last Values WBC 6.7 K/mm3 (4.5-11.0) 04/19/21 00:32 RBC 4.88 M/mm3 (3.65-5.03) 04/19/21 00:32 Hgb 14.6 gm/dl (11.8-15.2) 04/19/21 00:32 Hct 42.2 % (35.5-45.6) 04/19/21 00:32 MCV 87 fl (84-94) 04/19/21 00:32 MCH 30 pg (28-32) 04/19/21 00:32 MCHC 35 % (32-34) H 04/19/21 00:32 RDW 14.2 % (13.2-15.2) 04/19/21 00:32 Plt Count 212 K/mm3 (140-440) 04/19/21 00:32 Lymph % (Auto) 18.3 % (13.4-35.0) 04/19/21 00:32 [place] % (Auto) 11.4 % (0.0-7.3) H 04/19/21 00:32 Eos % (Auto) 1.2 % (0.0-4.3) 04/19/21 00:32 Baso % (Auto) 0.8 % (0.0-1.8) 04/19/21 00:32 Lymph # (Auto) 1.2 K/mm3 (1.2-5.4) 04/19/21 00:32 [place] # (Auto) 0.7 K/mm3 (0.0-0.8) 04/19/21 00:32 Eos # (Auto) 0.1 K/mm3 (0.0-0.4) 04/19/21 00:32 Baso # (Auto) 0.1 K/mm3 (0.0-0.1) 04/19/21 00:32 Seg Neutrophils % 68.3 % (40.0-70.0) 04/19/21 00:32 Seg Neutrophils # 4.6 K/mm3 (1.8-7.7) 04/19/21 00:32 Sodium 144 mmol/L (137-145) 04/19/21 00:32 Potassium 4.0 mmol/L (3.6-5.0) 04/19/21 00:32 Chloride 104.3 mmol/L (98-107) 04/19/21 00:32 Carbon Dioxide 32 mmol/L (22-30) H D 04/19/21 00:32 Anion Gap 12 mmol/L 04/19/21 00:32 BUN 20 mg/dL (9-20) 04/19/21 00:32 Creatinine 1.1 mg/dL (0.8-1.3) 04/19/21 00:32 Estimated GFR > 60 ml/min 04/19/21 00:32 BUN/Creatinine Ratio 18 % 04/19/21 00:32 Glucose 96 mg/dL (75-100) 04/19/21 00:32 POC Glucose 104 mg/dL (70-105) 04/18/21 19:39 Hemoglobin A1c 5.6 % (4-6) 04/19/21 00:32 Calcium 9.2 mg/dL (8.4-10.2) 04/19/21 00:32 Total Bilirubin 0.40 mg/dL (0.1-1.2) 04/19/21 00:32 AST 17 units/L (5-40) 04/19/21 00:32 ALT 13 units/L (7-56) 04/19/21 00:32 Alkaline Phosphatase 117 units/L (35-129) 04/19/21 00:32 Total Protein 6.5 g/dL (6.3-8.2) 04/19/21 00:32 Albumin 4.2 g/dL (3.9-5) 04/19/21 00:32 Albumin/Globulin Ratio 1.8 % 04/19/21 00:32 Triglycerides 56 mg/dL (2-149) 04/19/21 00:32 Cholesterol 102 mg/dL (50-199) 04/19/21 00:32 LDL Cholesterol Direct 50 mg/dL (50-130) 04/19/21 00:32 HDL Cholesterol 45 mg/dL (40-59) 04/19/21 00:32 Cholesterol/HDL Ratio 2.26 % 04/19/21 00:32 TSH 6.650 mlU/mL (0.270-4.200) H 04/19/21 00:32 Hepatitis A IgM Ab Non-reactive (NonReactive) 04/19/21 00:32 Hep Bs Antigen Non-reactive (Negative) 04/19/21 00:32 Hep B Core IgM Ab Non-reactive (NonReactive) 04/19/21 00:32 Hepatitis C Antibody Non-reactive (NonReactive) 04/19/21 00:32 Last Vital Signs Temp 98.4 F 04/19/21 19:31 Pulse 71 04/19/21 19:31 Resp 16 04/19/21 19:31 BP 138/73 04/19/21 19:31 Pulse Ox 94 04/19/21 19:31
[2021-04-20] MEDS: amLODIPine 10 MG TAB PO SCH (09:23)
[2021-04-20] MEDS: SERTRALINE 25 MG TAB PO SCH (09:24)
[2021-04-20] MEDS: CLOPIDOGREL 75 MG TAB PO SCH (09:24)
[2021-04-20] MEDS: ASPIRIN 81 MG TAB CHEW PO SCH (09:24)
[2021-04-21] MEDS: ASPIRIN 81 MG TAB CHEW PO SCH (09:04)
[2021-04-21] MEDS: amLODIPine 10 MG TAB PO SCH (09:05)
[2021-04-21] MEDS: CLOPIDOGREL 75 MG TAB PO SCH (09:05)
[2021-04-21] MEDS: SERTRALINE 25 MG TAB PO SCH (10:00)
--- NOTE | 2021-04-21 10:39 | Progress Note ---
Subjective Date of service: 04/21/21 Principal diagnosis: dementia with behavioral disturbance Subjective Comment: The patient was seen today, he says he feels okay. He is confused. The patient denies SI/HI, he says "not a one" when asked. He also denies hallucinations of any kind. Reason for continued inpatient treatment: Although the patient denies SI, he expressed plans to overdose is the reason for his admission. Will continue to treat and monitor a few more days to ensue a safe discharge. REVIEW OF SYSTEMS Constitutional: Negative for weight loss ENT: Negative for stridor Respiratory: Negative for cough or hemoptysis All other systems reviewed and are negative MENTAL STATUS EXAMINATION General Appearance and Behavior: Age appropriate, wearing appropriate clothes, cooperative polite with questioning, good eye contact, cooperative Cooperation: cooperative Psychomotor Behavior: Psychomotor normal Mood: depressed Affect and affective range: congruent with stated mood Thought Process: impaired Thought Content: SI, depression Speech: Normal volume, Regular rate and rhythm Suicidal Ideation: Yes Homicidal Ideation: Denies hallucination: Denies Delusions: None elicited Impulse Control: Intact Insight and Judgment: Poor Memory: Intact Attention: Divided Orientation: Alert and oriented Diagnoses: Dementia with Behavioral Disturbance Treatment Plan Patient admitted for inpatient psychiatric evaluation, medication adjustment and close monitoring The patient's behavior, mood, sleep and appetite will be closely monitored. Patient enrolled in individual and group therapeutic sessions and encouraged to attend. Patient provided with a safe and structured environment. Patient's physical health needs will be addressed by the Hospitalist. H ospitalist Consulted Labs including CBC, CMP, Lipid profile and Hemoglobin A1C levels ordered for baseline reference Social Assessment will be completed and the Acid Bleacher will work with patient and family to ensure a suitable and safe disposition Medication adjustment will be made as clinically indicated Continue olanzapine 5mg po bid Continue Zoloft 25mg po daily Usual Wellness Congregational/Preservation: - Start Trazodone 50 mg po QHS & 50 mg po QHS PRN between 10 PM & 2 AM for insomnia - Start Melatonin 5 mg po QHS to promote circadian rhythm The patient agreed on the treatment plan, understood the risk, benefit, alternative treatment, potential consequence of no treatment, and gave informed consent. Estimated days: 7 Post hospital care: primary care provider, psychiatric provider Case staffed with Dr. Solares Medications and Allergies Allergies Allergy/AdvReac Type Severity Reaction Status Date / Time No Known Allergies Allergy Unverified 04/17/21 20:42 Home Medications Medication Instructions Recorded Confirmed Last Taken Type Aspirin [Aspirin BABY CHEW TAB] 81 mg PO QDAY 04/18/21 04/18/21 04/18/21 History AtorvaSTATin [Lipitor] 40 mg PO QHS 04/18/21 04/18/21 Unknown History Clopidogrel [Plavix] 75 mg PO QDAY 04/18/21 04/18/21 04/18/21 History OLANzapine [ZyPREXA] 5 mg PO BID 04/18/21 04/18/21 04/18/21 History amLODIPine 10 mg PO DAILY 04/18/21 04/18/21 04/18/21 History Active Meds: Active Medications Amlodipine Besylate (Amlodipine 10 Mg Tab) 10 mg PO DAILY [facility] Last Admin: 04/21/21 09:05 Dose: 10 mg Documented by: Aspirin (Aspirin 81 Mg Tab Chew) 81 mg PO QDAY [facility] Last Admin: 04/21/21 09:04 Dose: 81 mg Documented by: Atorvastatin Calcium (Atorvastatin 40 Mg Tab) 40 mg PO QHS [facility] Last Admin: 04/20/21 21:17 Dose: 40 mg Documented by: Clopidogrel Bisulfate (Clopidogrel 75 Mg Tab) 75 mg PO QDAY [facility] Last Admin: 04/21/21 09:05 Dose: 75 mg Documented by: Olanzapine (Olanzapine 5 Mg Tab) 5 mg PO BID [facility] Last Admin: 04/21/21 09:05 Dose: 5 mg Documented by: Sertraline HCl (Sertraline 25 Mg Tab) 25 mg PO QDAY [facility] Last Admin: 04/20/21 09:24 Dose: 25 mg Documented by: Results - Results Labs/Vitals: Laboratory Last Values WBC 6.7 K/mm3 (4.5-11.0) 04/19/21 00:32 RBC 4.88 M/mm3 (3.65-5.03) 04/19/21 00:32 Hgb 14.6 gm/dl (11.8-15.2) 04/19/21 00:32 Hct 42.2 % (35.5-45.6) 04/19/21 00:32 MCV 87 fl (84-94) 04/19/21 00:32 MCH 30 pg (28-32) 04/19/21 00:32 MCHC 35 % (32-34) H 04/19/21 00:32 RDW 14.2 % (13.2-15.2) 04/19/21 00:32 Plt Count 212 K/mm3 (140-440) 04/19/21 00:32 Lymph % (Auto) 18.3 % (13.4-35.0) 04/19/21 00:32 [place] % (Auto) 11.4 % (0.0-7.3) H 04/19/21 00:32 Eos % (Auto) 1.2 % (0.0-4.3) 04/19/21 00:32 Baso % (Auto) 0.8 % (0.0-1.8) 04/19/21 00:32 Lymph # (Auto) 1.2 K/mm3 (1.2-5.4) 04/19/21 00:32 [place] # (Auto) 0.7 K/mm3 (0.0-0.8) 04/19/21 00:32 Eos # (Auto) 0.1 K/mm3 (0.0-0.4) 04/19/21 00:32 Baso # (Auto) 0.1 K/mm3 (0.0-0.1) 04/19/21 00:32 Seg Neutrophils % 68.3 % (40.0-70.0) 04/19/21 00:32 Seg Neutrophils # 4.6 K/mm3 (1.8-7.7) 04/19/21 00:32 Sodium 144 mmol/L (137-145) 04/19/21 00:32 Potassium 4.0 mmol/L (3.6-5.0) 04/19/21 00:32 Chloride 104.3 mmol/L (98-107) 04/19/21 00:32 Carbon Dioxide 32 mmol/L (22-30) H D 04/19/21 00:32 Anion Gap 12 mmol/L 04/19/21 00:32 BUN 20 mg/dL (9-20) 04/19/21 00:32 Creatinine 1.1 mg/dL (0.8-1.3) 04/19/21 00:32 Estimated GFR > 60 ml/min 04/19/21 00:32 BUN/Creatinine Ratio 18 % 04/19/21 00:32 Glucose 96 mg/dL (75-100) 04/19/21 00:32 POC Glucose 104 mg/dL (70-105) 04/18/21 19:39 Hemoglobin A1c 5.6 % (4-6) 04/19/21 00:32 Calcium 9.2 mg/dL (8.4-10.2) 04/19/21 00:32 Total Bilirubin 0.40 mg/dL (0.1-1.2) 04/19/21 00:32 AST 17 units/L (5-40) 04/19/21 00:32 ALT 13 units/L (7-56) 04/19/21 00:32 Alkaline Phosphatase 117 units/L (35-129) 04/19/21 00:32 Total Protein 6.5 g/dL (6.3-8.2) 04/19/21 00:32 Albumin 4.2 g/dL (3.9-5) 04/19/21 00:32 Albumin/Globulin Ratio 1.8 % 04/19/21 00:32 Triglycerides 56 mg/dL (2-149) 04/19/21 00:32 Cholesterol 102 mg/dL (50-199) 04/19/21 00:32 LDL Cholesterol Direct 50 mg/dL (50-130) 04/19/21 00:32 HDL Cholesterol 45 mg/dL (40-59) 04/19/21 00:32 Cholesterol/HDL Ratio 2.26 % 04/19/21 00:32 TSH 6.650 mlU/mL (0.270-4.200) H 04/19/21 00:32 Hepatitis A IgM Ab Non-reactive (NonReactive) 04/19/21 00:32 Hep Bs Antigen Non-reactive (Negative) 04/19/21 00:32 Hep B Core IgM Ab Non-reactive (NonReactive) 04/19/21 00:32 Hepatitis C Antibody Non-reactive (NonReactive) 04/19/21 00:32 Last Vital Signs Temp 98.1 F 04/21/21 08:00 Pulse 64 04/21/21 09:05 Resp 18 04/21/21 08:00 BP 148/73 04/21/21 09:05 Pulse Ox 94 04/20/21 19:22
--- NOTE | 2021-04-21 14:37 | Progress Note ---
Assessment and Plan Assessment and plan: Assessment: 1. Dementia with behavioral disturbance 2. Hypertension 3. Hyperlipidemia 4. Prior history of stroke 5. Elevated TSH Plan: -Reviewed laboratory work which was normal with the exception of elevated TSH 6.650. This likely merits investigation in the future in the outpatient setting however does not merit treatment at this time. Would recommend a repeat TSH in 2 to 4 weeks. -Continue home amlodipine, aspirin, atorvastatin, clopidogrel. -Psych medication management as per psychiatry team. -We will continue to follow along. - Patient Problems (1) Dementia with behavioral disturbance Current Visit: Yes Status: Acute (2) Hypertension Current Visit: Yes Status: Acute (3) History of stroke Current Visit: Yes Status: Acute (4) Elevated TSH Current Visit: Yes Status: Acute (5) Hyperlipidemia Current Visit: Yes Status: Acute History Interval history: No acute complaints. No overnight events. Slightly confused Hospitalist Physical - Physical exam Narrative exam: Physical Exam: GENERAL APPEARANCE: Well developed, well nourished, alert and cooperative, and appears to be in no acute distress. Pleasant elderly appearing gentleman. HEAD: normocephalic. EYES: PERRL, EOMI. Vision is grossly intact. EARS: No gross deformities NOSE: No nasal discharge. THROAT: Oral cavity and pharynx normal. No inflammation, swelling, exudate, or lesions. NECK: Neck supple, non-tender without lymphadenopathy, masses or thyromegaly. CARDIAC: Normal S1 and S2. No S3, S4 or murmurs. Rhythm is regular. There is no peripheral edema, cyanosis or pallor. Extremities are warm and well perfused. Capillary refill is less than 2 seconds. No carotid bruits. LUNGS: Clear to auscultation and percussion without rales, rhonchi, wheezing or diminished breath sounds. ABDOMEN: Positive bowel sounds. Soft, nondistended, nontender. No guarding or rebound. No masses. MUSKULOSKELETAL: Adequately aligned spine. ROM intact spine and extremities. No joint erythema or tenderness. Normal muscular development. Normal gait. BACK: Examination of the spine reveals normal gait and posture EXTREMITIES: No significant deformity or joint abnormality. No edema. Peripheral pulses intact. No varicosities. NEUROLOGICAL: CN II-XII intact. Strength and sensation symmetric and intact throughout. Reflexes 2+ throughout. PSYCHIATRIC: The mental examination revealed the patient was oriented to person, place, and time. Easily distractible. Thought process appears to be impaired. Appears to have some dementia. - Constitutional Vitals: Temp Pulse Resp BP Pulse Ox 98.1 F 64 18 148/73 94 04/21/21 08:00 04/21/21 09:05 04/21/21 08:00 04/21/21 09:05 04/20/21 19:22 Results - Labs CBC & Chem 7: 04/19/21 00:32 04/19/21 00:32 Labs: Laboratory Last Values WBC 6.7 K/mm3 (4.5-11.0) 04/19/21 00:32 RBC 4.88 M/mm3 (3.65-5.03) 04/19/21 00:32 Hgb 14.6 gm/dl (11.8-15.2) 04/19/21 00:32 Hct 42.2 % (35.5-45.6) 04/19/21 00:32 MCV 87 fl (84-94) 04/19/21 00:32 MCH 30 pg (28-32) 04/19/21 00:32 MCHC 35 % (32-34) H 04/19/21 00:32 RDW 14.2 % (13.2-15.2) 04/19/21 00:32 Plt Count 212 K/mm3 (140-440) 04/19/21 00:32 Lymph % (Auto) 18.3 % (13.4-35.0) 04/19/21 00:32 [place] % (Auto) 11.4 % (0.0-7.3) H 04/19/21 00:32 Eos % (Auto) 1.2 % (0.0-4.3) 04/19/21 00:32 Baso % (Auto) 0.8 % (0.0-1.8) 04/19/21 00:32 Lymph # (Auto) 1.2 K/mm3 (1.2-5.4) 04/19/21 00:32 [place] # (Auto) 0.7 K/mm3 (0.0-0.8) 04/19/21 00:32 Eos # (Auto) 0.1 K/mm3 (0.0-0.4) 04/19/21 00:32 Baso # (Auto) 0.1 K/mm3 (0.0-0.1) 04/19/21 00:32 Seg Neutrophils % 68.3 % (40.0-70.0) 04/19/21 00:32 Seg Neutrophils # 4.6 K/mm3 (1.8-7.7) 04/19/21 00:32 Sodium 144 mmol/L (137-145) 04/19/21 00:32 Potassium 4.0 mmol/L (3.6-5.0) 04/19/21 00:32 Chloride 104.3 mmol/L (98-107) 04/19/21 00:32 Carbon Dioxide 32 mmol/L (22-30) H D 04/19/21 00:32 Anion Gap 12 mmol/L 04/19/21 00:32 BUN 20 mg/dL (9-20) 04/19/21 00:32 Creatinine 1.1 mg/dL (0.8-1.3) 04/19/21 00:32 Estimated GFR > 60 ml/min 04/19/21 00:32 BUN/Creatinine Ratio 18 % 04/19/21 00:32 Glucose 96 mg/dL (75-100) 04/19/21 00:32 POC Glucose 104 mg/dL (70-105) 04/18/21 19:39 Hemoglobin A1c 5.6 % (4-6) 04/19/21 00:32 Calcium 9.2 mg/dL (8.4-10.2) 04/19/21 00:32 Total Bilirubin 0.40 mg/dL (0.1-1.2) 04/19/21 00:32 AST 17 units/L (5-40) 04/19/21 00:32 ALT 13 units/L (7-56) 04/19/21 00:32 Alkaline Phosphatase 117 units/L (35-129) 04/19/21 00:32 Total Protein 6.5 g/dL (6.3-8.2) 04/19/21 00:32 Albumin 4.2 g/dL (3.9-5) 04/19/21 00:32 Albumin/Globulin Ratio 1.8 % 04/19/21 00:32 Triglycerides 56 mg/dL (2-149) 04/19/21 00:32 Cholesterol 102 mg/dL (50-199) 04/19/21 00:32 LDL Cholesterol Direct 50 mg/dL (50-130) 04/19/21 00:32 HDL Cholesterol 45 mg/dL (40-59) 04/19/21 00:32 Cholesterol/HDL Ratio 2.26 % 04/19/21 00:32 TSH 6.650 mlU/mL (0.270-4.200) H 04/19/21 00:32 Hepatitis A IgM Ab Non-reactive (NonReactive) 04/19/21 00:32 Hep Bs Antigen Non-reactive (Negative) 04/19/21 00:32 Hep B Core IgM Ab Non-reactive (NonReactive) 04/19/21 00:32 Hepatitis C Antibody Non-reactive (NonReactive) 04/19/21 00:32 Shetty/IV: Voiding Method Toilet Active Medications - Current Medications Current Medications: Generic Name Dose Route Start Last Admin Trade Name Freq PRN Reason Stop Dose Admin Amlodipine Besylate 10 mg 04/19/21 10:00 04/21/21 09:05 Amlodipine 10 Mg Tab PO 10 mg DAILY PATTI Administration Aspirin 81 mg 04/19/21 10:00 04/21/21 09:04 Aspirin 81 Mg Tab Chew PO 81 mg QDAY PATTI Administration Atorvastatin Calcium 40 mg 04/18/21 22:00 04/20/21 21:17 Atorvastatin 40 Mg Tab PO 40 mg QHS PATTI Administration Clopidogrel Bisulfate 75 mg 04/19/21 10:00 04/21/21 09:05 Clopidogrel 75 Mg Tab PO 75 mg QDAY PATTI Administration Olanzapine 5 mg 04/19/21 13:00 04/21/21 09:05 Olanzapine 5 Mg Tab PO 5 mg BID PATTI Administration Sertraline HCl 25 mg 04/19/21 13:00 04/20/21 09:24 Sertraline 25 Mg Tab PO 25 mg QDAY PATTI Administration
--- NOTE | 2021-04-22 10:15 | Progress Note ---
Subjective Date of service: 04/22/21 Principal diagnosis: dementia with behavioral disturbance Subjective Comment: The patient was seen today, he says he feels pretty good. He is confused. He denies SI/HI. He also denies hallucinations. He says "I'm just ready to go home." Reason for continued inpatient treatment: Although the patient denies SI, he expressed plans to overdose is the reason for his admission. Will continue to treat and monitor a few more days to ensue the patient will not carry out his plan. REVIEW OF SYSTEMS Constitutional: Negative for weight loss ENT: Negative for stridor Respiratory: Negative for cough or hemoptysis All other systems reviewed and are negative MENTAL STATUS EXAMINATION General Appearance and Behavior: Age appropriate, wearing appropriate clothes, cooperative polite with questioning, good eye contact, cooperative Cooperation: cooperative Psychomotor Behavior: Psychomotor normal Mood: depressed Affect and affective range: congruent with stated mood Thought Process: impaired Thought Content: SI, depression Speech: Normal volume, Regular rate and rhythm Suicidal Ideation: Yes Homicidal Ideation: Denies hallucination: Denies Delusions: None elicited Impulse Control: Intact Insight and Judgment: Poor Memory: Intact Attention: Divided Orientation: Alert and oriented Diagnoses: Dementia with Behavioral Disturbance Treatment Plan Patient admitted for inpatient psychiatric evaluation, medication adjustment and close monitoring The patient's behavior, mood, sleep and appetite will be closely monitored. Patient enrolled in individual and group therapeutic sessions and encouraged to attend. Patient provided with a safe and structured environment. Patient's physical health needs will be addressed by the Hospitalist. Hospitalist Consulted Labs including CBC, CMP, Lipid profile and Hemoglobin A1C levels ordered for baseline reference Social Assessment will be completed and the [employer] Cle[employer] Machine Operator will work with patient and family to ensure a suitable and safe disposition Medication adjustment will be made as clinically indicated Continue olanzapine 5mg po bid Continue Zoloft 25mg po daily Usual Wellness Shinto/Preservation: - Start Trazodone 50 mg po QHS & 50 mg po QHS PRN between 10 PM & 2 AM for insomnia - Start Melatonin 5 mg po QHS to promote circadian rhythm The patient agreed on the treatment plan, understood the risk, benefit, alternative treatment, potential consequence of no treatment, and gave informed consent. Estimated days: 7 Post hospital care: primary care provider, psychiatric provider Case staffed with Dr. Solares Medications and Allergies Allergies Allergy/AdvReac Type Severity Reaction Status Date / Time No Known Allergies Allergy Unverified 04/17/21 20:42 Home Medications Medication Instructions Recorded Confirmed Last Taken Type Aspirin [Aspirin BABY CHEW TAB] 81 mg PO QDAY 04/18/21 04/18/21 04/18/21 History AtorvaSTATin [Lipitor] 40 mg PO QHS 04/18/21 04/18/21 Unknown History Clopidogrel [Plavix] 75 mg PO QDAY 04/18/21 04/18/21 04/18/21 History OLANzapine [ZyPREXA] 5 mg PO BID 04/18/21 04/18/21 04/18/21 History amLODIPine 10 mg PO DAILY 04/18/21 04/18/21 04/18/21 History Active Meds: Active Medications Amlodipine Besylate (Amlodipine 10 Mg Tab) 10 mg PO DAILY [facility] Last Admin: 04/21/21 09:05 Dose: 10 mg Documented by: Aspirin (Aspirin 81 Mg Tab Chew) 81 mg PO QDAY [facility] Last Admin: 04/21/21 09:04 Dose: 81 mg Documented by: Atorvastatin Calcium (Atorvastatin 40 Mg Tab) 40 mg PO QHS [facility] Last Admin: 04/21/21 21:09 Dose: 40 mg Documented by: Clopidogrel Bisulfate (Clopidogrel 75 Mg Tab) 75 mg PO QDAY [facility] Last Admin: 04/21/21 09:05 Dose: 75 mg Documented by: Olanzapine (Olanzapine 5 Mg Tab) 5 mg PO BID [facility] Last Admin: 04/21/21 21:09 Dose: 5 mg Documented by: Sertraline HCl (Sertraline 25 Mg Tab) 25 mg PO QDAY [facility] Last Admin: 04/21/21 10:00 Dose: 25 mg Documented by: Results - Results Labs/Vitals: Laboratory Last Values WBC 6.7 K/mm3 (4.5-11.0) 04/19/21 00:32 RBC 4.88 M/mm3 (3.65-5.03) 04/19/21 00:32 Hgb 14.6 gm/dl (11.8-15.2) 04/19/21 00:32 Hct 42.2 % (35.5-45.6) 04/19/21 00:32 MCV 87 fl (84-94) 04/19/21 00:32 MCH 30 pg (28-32) 04/19/21 00:32 MCHC 35 % (32-34) H 04/19/21 00:32 RDW 14.2 % (13.2-15.2) 04/19/21 00:32 Plt Count 212 K/mm3 (140-440) 04/19/21 00:32 Lymph % (Auto) 18.3 % (13.4-35.0) 04/19/21 00:32 [place] % (Auto) 11.4 % (0.0-7.3) H 04/19/21 00:32 Eos % (Auto) 1.2 % (0.0-4.3) 04/19/21 00:32 Baso % (Auto) 0.8 % (0.0-1.8) 04/19/21 00:32 Lymph # (Auto) 1.2 K/mm3 (1.2-5.4) 04/19/21 00:32 [place] # (Auto) 0.7 K/mm3 (0.0-0.8) 04/19/21 00:32 Eos # (Auto) 0.1 K/mm3 (0.0-0.4) 04/19/21 00:32 Baso # (Auto) 0.1 K/mm3 (0.0-0.1) 04/19/21 00:32 Seg Neutrophils % 68.3 % (40.0-70.0) 04/19/21 00:32 Seg Neutrophils # 4.6 K/mm3 (1.8-7.7) 04/19/21 00:32 Sodium 144 mmol/L (137-145) 04/19/21 00:32 Potassium 4.0 mmol/L (3.6-5.0) 04/19/21 00:32 Chloride 104.3 mmol/L (98-107) 04/19/21 00:32 Carbon Dioxide 32 mmol/L (22-30) H D 04/19/21 00:32 Anion Gap 12 mmol/L 04/19/21 00:32 BUN 20 mg/dL (9-20) 04/19/21 00:32 Creatinine 1.1 mg/dL (0.8-1.3) 04/19/21 00:32 Estimated GFR > 60 ml/min 04/19/21 00:32 BUN/Creatinine Ratio 18 % 04/19/21 00:32 Glucose 96 mg/dL (75-100) 04/19/21 00:32 POC Glucose 104 mg/dL (70-105) 04/18/21 19:39 Hemoglobin A1c 5.6 % (4-6) 04/19/21 00:32 Calcium 9.2 mg/dL (8.4-10.2) 04/19/21 00:32 Total Bilirubin 0.40 mg/dL (0.1-1.2) 04/19/21 00:32 AST 17 units/L (5-40) 04/19/21 00:32 ALT 13 units/L (7-56) 04/19/21 00:32 Alkaline Phosphatase 117 units/L (35-129) 04/19/21 00:32 Total Protein 6.5 g/dL (6.3-8.2) 04/19/21 00:32 Albumin 4.2 g/dL (3.9-5) 04/19/21 00:32 Albumin/Globulin Ratio 1.8 % 04/19/21 00:32 Triglycerides 56 mg/dL (2-149) 04/19/21 00:32 Cholesterol 102 mg/dL (50-199) 04/19/21 00:32 LDL Cholesterol Direct 50 mg/dL (50-130) 04/19/21 00:32 HDL Cholesterol 45 mg/dL (40-59) 04/19/21 00:32 Cholesterol/HDL Ratio 2.26 % 04/19/21 00:32 TSH 6.650 mlU/mL (0.270-4.200) H 04/19/21 00:32 Hepatitis A IgM Ab Non-reactive (NonReactive) 04/19/21 00:32 Hep Bs Antigen Non-reactive (Negative) 04/19/21 00:32 Hep B Core IgM Ab Non-reactive (NonReactive) 04/19/21 00:32 Hepatitis C Antibody Non-reactive (NonReactive) 04/19/21 00:32 Last Vital Signs Temp 98.2 F 04/21/21 19:37 Pulse 75 04/22/21 08:42 Resp 20 04/22/21 08:42 BP 145/66 04/22/21 08:42 Pulse Ox 94 04/22/21 08:42
[2021-04-22] MEDS: SERTRALINE 25 MG TAB PO SCH (10:45)
[2021-04-22] MEDS: ASPIRIN 81 MG TAB CHEW PO SCH (10:45)
[2021-04-22] MEDS: CLOPIDOGREL 75 MG TAB PO SCH (10:45)
[2021-04-22] MEDS: amLODIPine 10 MG TAB PO SCH (10:45)
--- NOTE | 2021-04-22 14:19 | Progress Note ---
Assessment and Plan Assessment and plan: Assessment: 1. Dementia with behavioral disturbance 2. Hypertension 3. Hyperlipidemia 4. Prior history of stroke 5. Elevated TSH Plan: -Reviewed laboratory work which was normal with the exception of elevated TSH 6.650. This likely merits investigation in the future in the outpatient setting however does not merit treatment at this time. Would recommend a repeat TSH in 2 to 4 weeks. -Continue home amlodipine, aspirin, atorvastatin, clopidogrel. -Psych medication management as per psychiatry team. We will order an EKG as patient is on multiple QTc prolonging agents. -We will continue to follow along. - Patient Problems (1) Dementia with behavioral disturbance Current Visit: Yes Status: Acute (2) Hypertension Current Visit: Yes Status: Acute (3) History of stroke Current Visit: Yes Status: Acute (4) Elevated TSH Current Visit: Yes Status: Acute (5) Hyperlipidemia Current Visit: Yes Status: Acute History Interval history: No acute complaints. No overnight events. Slightly confused Hospitalist Physical - Physical exam Narrative exam: Physical Exam: GENERAL APPEARANCE: Well developed, well nourished, alert and cooperative, and appears to be in no acute distress. Pleasant elderly appearing gentleman. HEAD: normocephalic. EYES: PERRL, EOMI. Vision is grossly intact. EARS: No gross deformities NOSE: No nasal discharge. THROAT: Oral cavity and pharynx normal. No inflammation, swelling, exudate, or lesions. NECK: Neck supple, non-tender without lymphadenopathy, masses or thyromegaly. CARDIAC: Normal S1 and S2. No S3, S4 or murmurs. Rhythm is regular. There is no peripheral edema, cyanosis or pallor. Extremities are warm and well perfused. Capillary refill is less than 2 seconds. No carotid bruits. LUNGS: Clear to auscultation and percussion without rales, rhonchi, wheezing or diminished breath sounds. ABDOMEN: Positive bowel sounds. Soft, nondistended, nontender. No guarding or rebound. No masses. MUSKULOSKELETAL: Adequately aligned spine. ROM intact spine and extremities. No joint erythema or tenderness. Normal muscular development. Normal gait. BACK: Examination of the spine reveals normal gait and posture EXTREMITIES: No significant deformity or joint abnormality. No edema. Peripheral pulses intact. No varicosities. NEUROLOGICAL: CN II-XII intact. Strength and sensation symmetric and intact throughout. Reflexes 2+ throughout. PSYCHIATRIC: The mental examination revealed the patient was oriented to person, place, and time. Easily distractible. Thought process appears to be impaired. Appears to have some dementia. - Constitutional Vitals: Temp Pulse Resp BP Pulse Ox 98.2 F 75 20 146/66 94 04/21/21 19:37 04/22/21 10:45 04/22/21 08:42 04/22/21 10:45 04/22/21 08:42 Results - Labs CBC & Chem 7: 04/19/21 00:32 04/19/21 00:32 Labs: Laboratory Last Values WBC 6.7 K/mm3 (4.5-11.0) 04/19/21 00:32 RBC 4.88 M/mm3 (3.65-5.03) 04/19/21 00:32 Hgb 14.6 gm/dl (11.8-15.2) 04/19/21 00:32 Hct 42.2 % (35.5-45.6) 04/19/21 00:32 MCV 87 fl (84-94) 04/19/21 00:32 MCH 30 pg (28-32) 04/19/21 00:32 MCHC 35 % (32-34) H 04/19/21 00:32 RDW 14.2 % (13.2-15.2) 04/19/21 00:32 Plt Count 212 K/mm3 (140-440) 04/19/21 00:32 Lymph % (Auto) 18.3 % (13.4-35.0) 04/19/21 00:32 [place] % (Auto) 11.4 % (0.0-7.3) H 04/19/21 00:32 Eos % (Auto) 1.2 % (0.0-4.3) 04/19/21 00:32 Baso % (Auto) 0.8 % (0.0-1.8) 04/19/21 00:32 Lymph # (Auto) 1.2 K/mm3 (1.2-5.4) 04/19/21 00:32 [place] # (Auto) 0.7 K/mm3 (0.0-0.8) 04/19/21 00:32 Eos # (Auto) 0.1 K/mm3 (0.0-0.4) 04/19/21 00:32 Baso # (Auto) 0.1 K/mm3 (0.0-0.1) 04/19/21 00:32 Seg Neutrophils % 68.3 % (40.0-70.0) 04/19/21 00:32 Seg Neutrophils # 4.6 K/mm3 (1.8-7.7) 04/19/21 00:32 Sodium 144 mmol/L (137-145) 04/19/21 00:32 Potassium 4.0 mmol/L (3.6-5.0) 04/19/21 00:32 Chloride 104.3 mmol/L (98-107) 04/19/21 00:32 Carbon Dioxide 32 mmol/L (22-30) H D 04/19/21 00:32 Anion Gap 12 mmol/L 04/19/21 00:32 BUN 20 mg/dL (9-20) 04/19/21 00:32 Creatinine 1.1 mg/dL (0.8-1.3) 04/19/21 00:32 Estimated GFR > 60 ml/min 04/19/21 00:32 BUN/Creatinine Ratio 18 % 04/19/21 00:32 Glucose 96 mg/dL (75-100) 04/19/21 00:32 POC Glucose 104 mg/dL (70-105) 04/18/21 19:39 Hemoglobin A1c 5.6 % (4-6) 04/19/21 00:32 Calcium 9.2 mg/dL (8.4-10.2) 04/19/21 00:32 Total Bilirubin 0.40 mg/dL (0.1-1.2) 04/19/21 00:32 AST 17 units/L (5-40) 04/19/21 00:32 ALT 13 units/L (7-56) 04/19/21 00:32 Alkaline Phosphatase 117 units/L (35-129) 04/19/21 00:32 Total Protein 6.5 g/dL (6.3-8.2) 04/19/21 00:32 Albumin 4.2 g/dL (3.9-5) 04/19/21 00:32 Albumin/Globulin Ratio 1.8 % 04/19/21 00:32 Triglycerides 56 mg/dL (2-149) 04/19/21 00:32 Cholesterol 102 mg/dL (50-199) 04/19/21 00:32 LDL Cholesterol Direct 50 mg/dL (50-130) 04/19/21 00:32 HDL Cholesterol 45 mg/dL (40-59) 04/19/21 00:32 Cholesterol/HDL Ratio 2.26 % 04/19/21 00:32 TSH 6.650 mlU/mL (0.270-4.200) H 04/19/21 00:32 Hepatitis A IgM Ab Non-reactive (NonReactive) 04/19/21 00:32 Hep Bs Antigen Non-reactive (Negative) 04/19/21 00:32 Hep B Core IgM Ab Non-reactive (NonReactive) 04/19/21 00:32 Hepatitis C Antibody Non-reactive (NonReactive) 04/19/21 00:32 Shetty/IV: Voiding Method Toilet Active Medications - Current Medications Current Medications: Generic Name Dose Route Start Last Admin Trade Name Freq PRN Reason Stop Dose Admin Amlodipine Besylate 10 mg 04/19/21 10:00 04/22/21 10:45 Amlodipine 10 Mg Tab PO 10 mg DAILY PATTI Administration Aspirin 81 mg 04/19/21 10:00 04/22/21 10:45 Aspirin 81 Mg Tab Chew PO 81 mg QDAY PATTI Administration Atorvastatin Calcium 40 mg 04/18/21 22:00 04/21/21 21:09 Atorvastatin 40 Mg Tab PO 40 mg QHS PATTI Administration Clopidogrel Bisulfate 75 mg 04/19/21 10:00 04/22/21 10:45 Clopidogrel 75 Mg Tab PO 75 mg QDAY PATTI Administration Olanzapine 5 mg 04/19/21 13:00 04/22/21 10:45 Olanzapine 5 Mg Tab PO 5 mg BID PATTI Administration Sertraline HCl 25 mg 04/19/21 13:00 04/22/21 10:45 Sertraline 25 Mg Tab PO 25 mg QDAY PATTI Administration
--- NOTE | 2021-04-22 20:28 | Event Note ---
Date: 04/22/21 Spoke with patient's daughter, Aixa. She says her dad is manipulative, mean and narcissistic. She says he has always been mean to their mom and them. She says they brought him to the hospital because he [place] into [place] and called her brother several times making threats that he was going to kill himself by taking pills or run into traffic. She says he's always been paranoid and accuses people of things. She says it has gotten worse. Aixa says the patient can act normal and kind for only a short period but that's not his personality. She says he's welcome to come back to her when he's better, but says she doubts he'll want to come live with her. Aixa says the patient knows how to be manipulative and say what he needs to say to get his way.
--- NOTE | 2021-04-23 10:22 | Electrocardiograph Report ---
[facility] Test Date: 2021-04-22 Test Time: 20:13:55 Pat Name: IRMA RIDDLE Department: Room: [facility] 1 Gender: M Hotel Manager: TFTAMMY : 1940 Requested By: CLOVIS FUCHS Order Number: [id number] Reading MD: Arturo Rojas Measurements Intervals [place] Rate: 67 P: 67 VA: 167 QRS: -40 QRSD: 148 T: -51 QT: 423 QTc: 448 Interpretive Statements Sinus rhythm Atrial premature complex RBBB and LAFB Inferior infarct, old Abnrm T, consider ischemia, anterolateral lds No previous ECG available for comparison Electronically Signed On 04-23-2021 10:21:56 EDT by Arturo Rojas
--- NOTE | 2021-04-23 10:33 | Progress Note ---
Subjective Date of service: 04/23/21 Principal diagnosis: dementia with behavioral disturbance Subjective Comment: The patient was seen today, he says he feels pretty good. I informed that patient I had spoken with his daughter, Aixa, yesterday and told him that she says he could live with her. The patient says "that would be fine." He denies SI/HI or hallucinations of any kind. Reason for continued inpatient treatment: Although the patient denies SI, he expressed plans to overdose is the reason for his admission. Will continue to treat and monitor a few more days to ensue the patient will not carry out his plan. His daughter Aixa says he is manipulative and knows what to say to get what he wants. REVIEW OF SYSTEMS Constitutional: Negative for weight loss ENT: Negative for stridor Respiratory: Negative for cough or hemoptysis All other systems reviewed and are negative MENTAL STATUS EXAMINATION General Appearance and Behavior: Age appropriate, wearing appropriate clothes, cooperative polite with questioning, good eye contact, cooperative Cooperation: cooperative Psychomotor Behavior: Psychomotor normal Mood: depressed Affect and affective range: congruent with stated mood Thought Process: impaired Thought Content: SI, depression Speech: Normal volume, Regular rate and rhythm Suicidal Ideation: Yes Homicidal Ideation: Denies hallucination: Denies Delusions: None elicited Impulse Control: Intact Insight and Judgment: Poor Memory: Intact Attention: Divided Orientation: Alert and oriented Diagnoses: Dementia with Behavioral Disturbance Treatment Plan Patient admitted for inpatient psychiatric evaluation, medication adjustment and close monitoring The patient's behavior, mood, sleep and appetite will be closely monitored. Patient enrolled in individual and group therapeutic sessions and encouraged to attend. Patient provided with a safe and structured environment. Patient's physical health needs will be addressed by the Hospitalist. Hospitalist Consulted Labs including CBC, CMP, Lipid profile and Hemoglobin A1C levels ordered for baseline reference Social Assessment will be completed and the Administration Vice President will work with patient and family to ensure a suitable and safe disposition Medication adjustment will be made as clinically indicated Continue olanzapine 5mg po bid Continue Zoloft 25mg po daily Usual Wellness Tenriism/Preservation: - Start Trazodone 50 mg po QHS & 50 mg po QHS PRN between 10 PM & 2 AM for insomnia - Start Melatonin 5 mg po QHS to promote circadian rhythm The patient agreed on the treatment plan, understood the risk, benefit, alternative treatment, potential consequence of no treatment, and gave informed consent. Estimated days: 7 Post hospital care: primary care provider, psychiatric provider Case staffed with Dr. Solares Medications and Allergies Allergies Allergy/AdvReac Type Severity Reaction Status Date / Time No Known Allergies Allergy Unverified 04/17/21 20:42 Home Medications Medication Instructions Recorded Confirmed Last Taken Type Aspirin [Aspirin BABY CHEW TAB] 81 mg PO QDAY 04/18/21 04/18/21 04/18/21 History AtorvaSTATin [Lipitor] 40 mg PO QHS 04/18/21 04/18/21 Unknown History Clopidogrel [Plavix] 75 mg PO QDAY 04/18/21 04/18/21 04/18/21 History OLANzapine [ZyPREXA] 5 mg PO BID 04/18/21 04/18/21 04/18/21 History amLODIPine 10 mg PO DAILY 04/18/21 04/18/21 04/18/21 History Active Meds: Active Medications Amlodipine Besylate (Amlodipine 10 Mg Tab) 10 mg PO DAILY [facility] Last Admin: 04/22/21 10:45 Dose: 10 mg Documented by: Aspirin (Aspirin 81 Mg Tab Chew) 81 mg PO QDAY [facility] Last Admin: 04/22/21 10:45 Dose: 81 mg Documented by: Atorvastatin Calcium (Atorvastatin 40 Mg Tab) 40 mg PO QHS [facility] Last Admin: 04/22/21 21:41 Dose: 40 mg Documented by: Clopidogrel Bisulfate (Clopidogrel 75 Mg Tab) 75 mg PO QDAY [facility] Last Admin: 04/22/21 10:45 Dose: 75 mg Documented by: Olanzapine (Olanzapine 5 Mg Tab) 5 mg PO BID [facility] Last Admin: 04/22/21 21:41 Dose: 5 mg Documented by: Sertraline HCl (Sertraline 25 Mg Tab) 25 mg PO QDAY [facility] Last Admin: 04/22/21 10:45 Dose: 25 mg Documented by: Results - Results Labs/Vitals: Laboratory Last Values WBC 6.7 K/mm3 (4.5-11.0) 04/19/21 00:32 RBC 4.88 M/mm3 (3.65-5.03) 04/19/21 00:32 Hgb 14.6 gm/dl (11.8-15.2) 04/19/21 00:32 Hct 42.2 % (35.5-45.6) 04/19/21 00:32 MCV 87 fl (84-94) 04/19/21 00:32 MCH 30 pg (28-32) 04/19/21 00:32 MCHC 35 % (32-34) H 04/19/21 00:32 RDW 14.2 % (13.2-15.2) 04/19/21 00:32 Plt Count 212 K/mm3 (140-440) 04/19/21 00:32 Lymph % (Auto) 18.3 % (13.4-35.0) 04/19/21 00:32 [place] % (Auto) 11.4 % (0.0-7.3) H 04/19/21 00:32 Eos % (Auto) 1.2 % (0.0-4.3) 04/19/21 00:32 Baso % (Auto) 0.8 % (0.0-1.8) 04/19/21 00:32 Lymph # (Auto) 1.2 K/mm3 (1.2-5.4) 04/19/21 00:32 [place] # (Auto) 0.7 K/mm3 (0.0-0.8) 04/19/21 00:32 Eos # (Auto) 0.1 K/mm3 (0.0-0.4) 04/19/21 00:32 Baso # (Auto) 0.1 K/mm3 (0.0-0.1) 04/19/21 00:32 Seg Neutrophils % 68.3 % (40.0-70.0) 04/19/21 00:32 Seg Neutrophils # 4.6 K/mm3 (1.8-7.7) 04/19/21 00:32 Sodium 144 mmol/L (137-145) 04/19/21 00:32 Potassium 4.0 mmol/L (3.6-5.0) 04/19/21 00:32 Chloride 104.3 mmol/L (98-107) 04/19/21 00:32 Carbon Dioxide 32 mmol/L (22-30) H D 04/19/21 00:32 Anion Gap 12 mmol/L 04/19/21 00:32 BUN 20 mg/dL (9-20) 04/19/21 00:32 Creatinine 1.1 mg/dL (0.8-1.3) 04/19/21 00:32 Estimated GFR > 60 ml/min 04/19/21 00:32 BUN/Creatinine Ratio 18 % 04/19/21 00:32 Glucose 96 mg/dL (75-100) 04/19/21 00:32 POC Glucose 104 mg/dL (70-105) 04/18/21 19:39 Hemoglobin A1c 5.6 % (4-6) 04/19/21 00:32 Calcium 9.2 mg/dL (8.4-10.2) 04/19/21 00:32 Total Bilirubin 0.40 mg/dL (0.1-1.2) 04/19/21 00:32 AST 17 units/L (5-40) 04/19/21 00:32 ALT 13 units/L (7-56) 04/19/21 00:32 Alkaline Phosphatase 117 units/L (35-129) 04/19/21 00:32 Total Protein 6.5 g/dL (6.3-8.2) 04/19/21 00:32 Albumin 4.2 g/dL (3.9-5) 04/19/21 00:32 Albumin/Globulin Ratio 1.8 % 04/19/21 00:32 Triglycerides 56 mg/dL (2-149) 04/19/21 00:32 Cholesterol 102 mg/dL (50-199) 04/19/21 00:32 LDL Cholesterol Direct 50 mg/dL (50-130) 04/19/21 00:32 HDL Cholesterol 45 mg/dL (40-59) 04/19/21 00:32 Cholesterol/HDL Ratio 2.26 % 04/19/21 00:32 TSH 6.650 mlU/mL (0.270-4.200) H 04/19/21 00:32 Hepatitis A IgM Ab Non-reactive (NonReactive) 04/19/21 00:32 Hep Bs Antigen Non-reactive (Negative) 04/19/21 00:32 Hep B Core IgM Ab Non-reactive (NonReactive) 04/19/21 00:32 Hepatitis C Antibody Non-reactive (NonReactive) 04/19/21 00:32 Last Vital Signs Temp 98.5 F 04/22/21 19:36 Pulse 72 04/22/21 19:36 Resp 16 04/22/21 19:36 BP 150/69 04/22/21 19:36 Pulse Ox 94 04/22/21 19:36
[2021-04-23] MEDS: SERTRALINE 25 MG TAB PO SCH (10:37)
[2021-04-23] MEDS: amLODIPine 10 MG TAB PO SCH (10:38)
[2021-04-23] MEDS: ASPIRIN 81 MG TAB CHEW PO SCH (10:41)
[2021-04-23] MEDS: CLOPIDOGREL 75 MG TAB PO SCH (10:41)
--- NOTE | 2021-04-23 11:22 | Event Note ---
Date: 04/23/21 Spoke with the patient's daughter, Aixa again today, who states they found generic viagra in his pockets. She says this has been making the patient dizzy at times. She also states again that the patient is manipulative and is going to get angry when things don't go his way.
--- NOTE | 2021-04-23 19:52 | Progress Note ---
Assessment and Plan - Patient Problems (1) Vascular dementia with behavioral disturbance Current Visit: Yes Status: Acute Plan to address problem: Verbal prompting, verbal redirection, supportive care, benzodiazepine therapy as clinically indicated. (2) Cerebral atherosclerosis Current Visit: Yes Status: Acute Plan to address problem: Risk factor reduction, antiplatelet therapy, (3) Hyperlipidemia Current Visit: Yes Status: Acute Qualifiers: Hyperlipidemia type: mixed hyperlipidemia Qualified Code(s): E78.2 - Mixed hyperlipidemia Plan to address problem: Low-cholesterol diet, statin therapy. (4) Hypertension Current Visit: Yes Status: Acute Qualifiers: Hypertension type: primary hypertension Qualified Code(s): I10 - Essential (primary) hypertension History Interval history: 80 YO Male with HTN, HLD, CVA, Vascular Dementia with Behavioral Disturbance, Cerebral Atherosclerosis admitted to [facility] for Psychiatric stabilization. Patient seen and evaluated in the recreation room. Patient resting comfortably. No reported nursing events. Patient denies pain. Hospitalist Physical - Constitutional Vitals: Temp Pulse Resp BP Pulse Ox 98.4 F 75 20 137/74 97 04/23/21 10:29 04/23/21 10:38 04/23/21 10:29 04/23/21 10:38 04/23/21 10:29 General appearance: Present: no acute distress - EENT Eyes: Present: PERRL ENT: hearing decreased - Neck Neck: Present: supple - Respiratory Respiratory effort: normal Respiratory: bilateral: CTA - Cardiovascular Rhythm: regular Heart Sounds: Present: S1 & S2 - Extremities Extremities: no ischemia Peripheral Pulses: within normal limits - Abdominal General gastrointestinal: soft, non-tender, non-distended - Integumentary Integumentary: Present: clear, dry - Psychiatric Psychiatric: cooperative - Neurologic Neurologic: CNII-XII intact Results - Labs CBC & Chem 7: 04/19/21 00:32 04/19/21 00:32 Labs: Laboratory Last Values WBC 6.7 K/mm3 (4.5-11.0) 04/19/21 00:32 RBC 4.88 M/mm3 (3.65-5.03) 04/19/21 00:32 Hgb 14.6 gm/dl (11.8-15.2) 04/19/21 00:32 Hct 42.2 % (35.5-45.6) 04/19/21 00:32 MCV 87 fl (84-94) 04/19/21 00:32 MCH 30 pg (28-32) 04/19/21 00:32 MCHC 35 % (32-34) H 04/19/21 00:32 RDW 14.2 % (13.2-15.2) 04/19/21 00:32 Plt Count 212 K/mm3 (140-440) 04/19/21 00:32 Lymph % (Auto) 18.3 % (13.4-35.0) 04/19/21 00:32 [place] % (Auto) 11.4 % (0.0-7.3) H 04/19/21 00:32 Eos % (Auto) 1.2 % (0.0-4.3) 04/19/21 00:32 Baso % (Auto) 0.8 % (0.0-1.8) 04/19/21 00:32 Lymph # (Auto) 1.2 K/mm3 (1.2-5.4) 04/19/21 00:32 [place] # (Auto) 0.7 K/mm3 (0.0-0.8) 04/19/21 00:32 Eos # (Auto) 0.1 K/mm3 (0.0-0.4) 04/19/21 00:32 Baso # (Auto) 0.1 K/mm3 (0.0-0.1) 04/19/21 00:32 Seg Neutrophils % 68.3 % (40.0-70.0) 04/19/21 00:32 Seg Neutrophils # 4.6 K/mm3 (1.8-7.7) 04/19/21 00:32 Sodium 144 mmol/L (137-145) 04/19/21 00:32 Potassium 4.0 mmol/L (3.6-5.0) 04/19/21 00:32 Chloride 104.3 mmol/L (98-107) 04/19/21 00:32 Carbon Dioxide 32 mmol/L (22-30) H D 04/19/21 00:32 Anion Gap 12 mmol/L 04/19/21 00:32 BUN 20 mg/dL (9-20) 04/19/21 00:32 Creatinine 1.1 mg/dL (0.8-1.3) 04/19/21 00:32 Estimated GFR > 60 ml/min 04/19/21 00:32 BUN/Creatinine Ratio 18 % 04/19/21 00:32 Glucose 96 mg/dL (75-100) 04/19/21 00:32 POC Glucose 104 mg/dL (70-105) 04/18/21 19:39 Hemoglobin A1c 5.6 % (4-6) 04/19/21 00:32 Calcium 9.2 mg/dL (8.4-10.2) 04/19/21 00:32 Total Bilirubin 0.40 mg/dL (0.1-1.2) 04/19/21 00:32 AST 17 units/L (5-40) 04/19/21 00:32 ALT 13 units/L (7-56) 04/19/21 00:32 Alkaline Phosphatase 117 units/L (35-129) 04/19/21 00:32 Total Protein 6.5 g/dL (6.3-8.2) 04/19/21 00:32 Albumin 4.2 g/dL (3.9-5) 04/19/21 00:32 Albumin/Globulin Ratio 1.8 % 04/19/21 00:32 Triglycerides 56 mg/dL (2-149) 04/19/21 00:32 Cholesterol 102 mg/dL (50-199) 04/19/21 00:32 LDL Cholesterol Direct 50 mg/dL (50-130) 04/19/21 00:32 HDL Cholesterol 45 mg/dL (40-59) 04/19/21 00:32 Cholesterol/HDL Ratio 2.26 % 04/19/21 00:32 TSH 6.650 mlU/mL (0.270-4.200) H 04/19/21 00:32 Hepatitis A IgM Ab Non-reactive (NonReactive) 04/19/21 00:32 Hep Bs Antigen Non-reactive (Negative) 04/19/21 00:32 Hep B Core IgM Ab Non-reactive (NonReactive) 04/19/21 00:32 Hepatitis C Antibody Non-reactive (NonReactive) 04/19/21 00:32 Shetty/IV: Voiding Method Toilet Active Medications - Current Medications Current Medications: Generic Name Dose Route Start Last Admin Trade Name Freq PRN Reason Stop Dose Admin Amlodipine Besylate 10 mg 04/19/21 10:00 04/23/21 10:38 Amlodipine 10 Mg Tab PO 10 mg DAILY PATTI Administration Aspirin 81 mg 04/19/21 10:00 04/23/21 10:41 Aspirin 81 Mg Tab Chew PO 81 mg QDAY PATTI Administration Atorvastatin Calcium 40 mg 04/18/21 22:00 04/22/21 21:41 Atorvastatin 40 Mg Tab PO 40 mg QHS PATTI Administration Clopidogrel Bisulfate 75 mg 04/19/21 10:00 04/23/21 10:41 Clopidogrel 75 Mg Tab PO 75 mg QDAY PATTI Administration Olanzapine 5 mg 04/19/21 13:00 04/23/21 10:41 Olanzapine 5 Mg Tab PO 5 mg BID PATTI Administration Sertraline HCl 25 mg 04/19/21 13:00 04/23/21 10:37 Sertraline 25 Mg Tab PO 25 mg QDAY PATTI Administration
[2021-04-24] MEDS: amLODIPine 10 MG TAB PO SCH (09:11)
[2021-04-24] MEDS: CLOPIDOGREL 75 MG TAB PO SCH (09:11)
[2021-04-24] MEDS: ASPIRIN 81 MG TAB CHEW PO SCH (09:11)
[2021-04-24] MEDS: SERTRALINE 25 MG TAB PO SCH (09:11)
--- NOTE | 2021-04-24 10:00 | Progress Note ---
Subjective Date of service: 04/24/21 Principal diagnosis: dementia with behavioral disturbance Subjective Comment: The patient was seen today, he says he feels okay. He denies SI/HI, stating "I want to live as long as I can." He also denies hallucinations Reason for continued inpatient treatment: Although the patient denies SI, he expressed plans to overdose is the reason for his admission. Will continue to treat and monitor a few more days to ensue the patient will not carry out his plan. His daughter Aixa says he is manipulative and wants to make sure he's truly stable prior to discharge. Will continue to monitor and treat and discharge safely on Thursday if housing is secure. REVIEW OF SYSTEMS Constitutional: Negative for weight loss ENT: Negative for stridor Respiratory: Negative for cough or hemoptysis All other systems reviewed and are negative MENTAL STATUS EXAMINATION General Appearance and Behavior: Age appropriate, wearing appropriate clothes, cooperative polite with questioning, good eye contact, cooperative Cooperation: cooperative Psychomotor Behavior: Psychomotor normal Mood: depressed Affect and affective range: congruent with stated mood Thought Process: impaired Thought Content: SI, depression Speech: Normal volume, Regular rate and rhythm Suicidal Ideation: Yes Homicidal Ideation: Denies hallucination: Denies Delusions: None elicited Impulse Control: Intact Insight and Judgment: Poor Memory: Intact Attention: Divided Orientation: Alert and oriented Diagnoses: Dementia with Behavioral Disturbance Treatment Plan Patient admitted for inpatient psychiatric evaluation, medication adjustment and close monitoring The patient's behavior, mood, sleep and appetite will be closely monitored. Patient enrolled in individual and group therapeutic sessions and encouraged to attend. Patient provided with a safe and structured environment. Patient's physical health needs will be addressed by the Hospitalist. Hospitalist Consulted Labs including CBC, CMP, Lipid profile and Hemoglobin A1C levels ordered for baseline reference Social Assessment will be completed and the Stringed Instrument Repairer will work with patient and family to ensure a suitable and safe disposition Medication adjustment will be made as clinically indicated Continue olanzapine 5mg po bid Continue Zoloft 25mg po daily Usual Wellness Shinto/Preservation: - Start Trazodone 50 mg po QHS & 50 mg po QHS PRN between 10 PM & 2 AM for insomnia - Start Melatonin 5 mg po QHS to promote circadian rhythm The patient agreed on the treatment plan, understood the risk, benefit, alternative treatment, potential consequence of no treatment, and gave informed consent. Estimated days: 2 Post hospital care: primary care provider, psychiatric provider Case staffed with Dr. Solares Medications and Allergies Allergies Allergy/AdvReac Type Severity Reaction Status Date / Time No Known Allergies Allergy Unverified 04/17/21 20:42 Home Medications Medication Instructions Recorded Confirmed Last Taken Type Aspirin [Aspirin BABY CHEW TAB] 81 mg PO QDAY 04/18/21 04/18/21 04/18/21 History AtorvaSTATin [Lipitor] 40 mg PO QHS 04/18/21 04/18/21 Unknown History Clopidogrel [Plavix] 75 mg PO QDAY 04/18/21 04/18/21 04/18/21 History OLANzapine [ZyPREXA] 5 mg PO BID 04/18/21 04/18/21 04/18/21 History amLODIPine 10 mg PO DAILY 04/18/21 04/18/21 04/18/21 History Active Meds: Active Medications Amlodipine Besylate (Amlodipine 10 Mg Tab) 10 mg PO DAILY [facility] Last Admin: 04/24/21 09:11 Dose: 10 mg Documented by: Aspirin (Aspirin 81 Mg Tab Chew) 81 mg PO QDAY [facility] Last Admin: 04/24/21 09:11 Dose: 81 mg Documented by: Atorvastatin Calcium (Atorvastatin 40 Mg Tab) 40 mg PO QHS [facility] Last Admin: 04/23/21 21:18 Dose: 40 mg Documented by: Clopidogrel Bisulfate (Clopidogrel 75 Mg Tab) 75 mg PO QDAY [facility] Last Admin: 04/24/21 09:11 Dose: 75 mg Documented by: Olanzapine (Olanzapine 5 Mg Tab) 5 mg PO BID [facility] Last Admin: 04/24/21 09:11 Dose: 5 mg Documented by: Sertraline HCl (Sertraline 25 Mg Tab) 25 mg PO QDAY [facility] Last Admin: 04/24/21 09:11 Dose: 25 mg Documented by: Results - Results Labs/Vitals: Laboratory Last Values WBC 6.7 K/mm3 (4.5-11.0) 04/19/21 00:32 RBC 4.88 M/mm3 (3.65-5.03) 04/19/21 00:32 Hgb 14.6 gm/dl (11.8-15.2) 04/19/21 00:32 Hct 42.2 % (35.5-45.6) 04/19/21 00:32 MCV 87 fl (84-94) 04/19/21 00:32 MCH 30 pg (28-32) 04/19/21 00:32 MCHC 35 % (32-34) H 04/19/21 00:32 RDW 14.2 % (13.2-15.2) 04/19/21 00:32 Plt Count 212 K/mm3 (140-440) 04/19/21 00:32 Lymph % (Auto) 18.3 % (13.4-35.0) 04/19/21 00:32 [place] % (Auto) 11.4 % (0.0-7.3) H 04/19/21 00:32 Eos % (Auto) 1.2 % (0.0-4.3) 04/19/21 00:32 Baso % (Auto) 0.8 % (0.0-1.8) 04/19/21 00:32 Lymph # (Auto) 1.2 K/mm3 (1.2-5.4) 04/19/21 00:32 [place] # (Auto) 0.7 K/mm3 (0.0-0.8) 04/19/21 00:32 Eos # (Auto) 0.1 K/mm3 (0.0-0.4) 04/19/21 00:32 Baso # (Auto) 0.1 K/mm3 (0.0-0.1) 04/19/21 00:32 Seg Neutrophils % 68.3 % (40.0-70.0) 04/19/21 00:32 Seg Neutrophils # 4.6 K/mm3 (1.8-7.7) 04/19/21 00:32 Sodium 144 mmol/L (137-145) 04/19/21 00:32 Potassium 4.0 mmol/L (3.6-5.0) 04/19/21 00:32 Chloride 104.3 mmol/L (98-107) 04/19/21 00:32 Carbon Dioxide 32 mmol/L (22-30) H D 04/19/21 00:32 Anion Gap 12 mmol/L 04/19/21 00:32 BUN 20 mg/dL (9-20) 04/19/21 00:32 Creatinine 1.1 mg/dL (0.8-1.3) 04/19/21 00:32 Estimated GFR > 60 ml/min 04/19/21 00:32 BUN/Creatinine Ratio 18 % 04/19/21 00:32 Glucose 96 mg/dL (75-100) 04/19/21 00:32 POC Glucose 104 mg/dL (70-105) 04/18/21 19:39 Hemoglobin A1c 5.6 % (4-6) 04/19/21 00:32 Calcium 9.2 mg/dL (8.4-10.2) 04/19/21 00:32 Total Bilirubin 0.40 mg/dL (0.1-1.2) 04/19/21 00:32 AST 17 units/L (5-40) 04/19/21 00:32 ALT 13 units/L (7-56) 04/19/21 00:32 Alkaline Phosphatase 117 units/L (35-129) 04/19/21 00:32 Total Protein 6.5 g/dL (6.3-8.2) 04/19/21 00:32 Albumin 4.2 g/dL (3.9-5) 04/19/21 00:32 Albumin/Globulin Ratio 1.8 % 04/19/21 00:32 Triglycerides 56 mg/dL (2-149) 04/19/21 00:32 Cholesterol 102 mg/dL (50-199) 04/19/21 00:32 LDL Cholesterol Direct 50 mg/dL (50-130) 04/19/21 00:32 HDL Cholesterol 45 mg/dL (40-59) 04/19/21 00:32 Cholesterol/HDL Ratio 2.26 % 04/19/21 00:32 TSH 6.650 mlU/mL (0.270-4.200) H 04/19/21 00:32 Hepatitis A IgM Ab Non-reactive (NonReactive) 04/19/21 00:32 Hep Bs Antigen Non-reactive (Negative) 04/19/21 00:32 Hep B Core IgM Ab Non-reactive (NonReactive) 04/19/21 00:32 Hepatitis C Antibody Non-reactive (NonReactive) 04/19/21 00:32 Last Vital Signs Temp 98.7 F 04/24/21 06:43 Pulse 66 04/24/21 09:11 Resp 18 04/24/21 06:43 BP 130/84 04/24/21 09:11 Pulse Ox 95 04/24/21 06:43
[2021-04-25] MEDS: CLOPIDOGREL 75 MG TAB PO SCH (09:15)
[2021-04-25] MEDS: ASPIRIN 81 MG TAB CHEW PO SCH (09:15)
[2021-04-25] MEDS: amLODIPine 10 MG TAB PO SCH (09:15)
[2021-04-25] MEDS: SERTRALINE 25 MG TAB PO SCH (09:15)
--- NOTE | 2021-04-25 12:11 | Progress Note ---
Subjective Date of service: 04/25/21 Principal diagnosis: dementia with behavioral disturbance Subjective Comment: The patient was seen today, he says he feels okay. He states he threw up after eating roast beef. he says it has happened before doesn't want it again. The patient denies SI/HI or hallucinations of any kind. Reason for continued inpatient treatment: The patient has denied SI over the last few days. Will plan for a safe discharge to his daughter's care on Thursday if no events throughout night. REVIEW OF SYSTEMS Constitutional: Negative for weight loss ENT: Negative for stridor Respiratory: Negative for cough or hemoptysis All other systems reviewed and are negative MENTAL STATUS EXAMINATION General Appearance and Behavior: Age appropriate, wearing appropriate clothes, cooperative polite with questioning, good eye contact, cooperative Cooperation: cooperative Psychomotor Behavior: Psychomotor normal Mood: depressed Affect and affective range: congruent with stated mood Thought Process: impaired Thought Content: SI, depression Speech: Normal volume, Regular rate and rhythm Suicidal Ideation: Yes Homicidal Ideation: Denies hallucination: Denies Delusions: None elicited Impulse Control: Intact Insight and Judgment: Poor Memory: Intact Attention: Divided Orientation: Alert and oriented Diagnoses: Dementia with Behavioral Disturbance Treatment Plan Patient admitted for inpatient psychiatric evaluation, medication adjustment and close monitoring The patient's behavior, mood, sleep and appetite will be closely monitored. Patient enrolled in individual and group therapeutic sessions and encouraged to attend. Patient provided with a safe and structured environment. Patient's physical health needs will be addressed by the Hospitalist. Hospitalist Consulted Labs including CBC, CMP, Lipid profile and Hemoglobin A1C levels ordered for baseline reference Social Assessment will be completed and the Power Shovel Engineer will work with patient and family to ensure a suitable and safe disposition Medication adjustment will be made as clinically indicated Continue olanzapine 5mg po bid Continue Zoloft 25mg po daily Usual Wellness [facility]/Preservation: - Start Trazodone 50 mg po QHS & 50 mg po QHS PRN between 10 PM & 2 AM for insomnia - Start Melatonin 5 mg po QHS to promote circadian rhythm The patient agreed on the treatment plan, understood the risk, benefit, alternative treatment, potential consequence of no treatment, and gave informed consent. Estimated days: 2 Post hospital care: primary care provider, psychiatric provider Case staffed with Dr. Solares Medications and Allergies Allergies Allergy/AdvReac Type Severity Reaction Status Date / Time No Known Allergies Allergy Unverified 04/17/21 20:42 Home Medications Medication Instructions Recorded Confirmed Last Taken Type Aspirin [Aspirin BABY CHEW TAB] 81 mg PO QDAY 04/18/21 04/18/21 04/18/21 History AtorvaSTATin [Lipitor] 40 mg PO QHS 04/18/21 04/18/21 Unknown History Clopidogrel [Plavix] 75 mg PO QDAY 04/18/21 04/18/21 04/18/21 History OLANzapine [ZyPREXA] 5 mg PO BID 04/18/21 04/18/21 04/18/21 History amLODIPine 10 mg PO DAILY 04/18/21 04/18/21 04/18/21 History Active Meds: Active Medications Amlodipine Besylate (Amlodipine 10 Mg Tab) [address] [facility] Last Admin: 04/25/21 09:15 Dose: 10 mg Documented by: Aspirin (Aspirin 81 Mg Tab Chew) [address] [facility] Last Admin: 04/25/21 09:15 Dose: 81 mg Documented by: Atorvastatin Calcium (Atorvastatin 40 Mg Tab) [address] [facility] Last Admin: 04/24/21 21:04 Dose: 40 mg Documented by: Clopidogrel Bisulfate (Clopidogrel 75 Mg Tab) [address] [facility] Last Admin: 04/25/21 09:15 Dose: 75 mg Documented by: Olanzapine (Olanzapine 5 Mg Tab) [address] [facility] Last Admin: 04/25/21 09:15 Dose: 5 mg Documented by: Sertraline HCl (Sertraline 25 Mg Tab) [address] [facility] Last Admin: 04/25/21 09:15 Dose: 25 mg Documented by: Results - Results Labs/Vitals: Laboratory Last Values WBC 6.7 K/mm3 (4.5-11.0) 04/19/21 00:32 RBC 4.88 M/mm3 (3.65-5.03) 04/19/21 00:32 Hgb 14.6 gm/dl (11.8-15.2) 04/19/21 00:32 Hct 42.2 % (35.5-45.6) 04/19/21 00:32 MCV 87 fl (84-94) 04/19/21 00:32 MCH 30 pg (28-32) 04/19/21 00:32 MCHC 35 % (32-34) H 04/19/21 00:32 RDW 14.2 % (13.2-15.2) 04/19/21 00:32 Plt Count 212 K/mm3 (140-440) 04/19/21 00:32 Lymph % (Auto) 18.3 % (13.4-35.0) 04/19/21 00:32 [place] % (Auto) 11.4 % (0.0-7.3) H 04/19/21 00:32 Eos % (Auto) 1.2 % (0.0-4.3) 04/19/21 00:32 Baso % (Auto) 0.8 % (0.0-1.8) 04/19/21 00:32 Lymph # (Auto) 1.2 K/mm3 (1.2-5.4) 04/19/21 00:32 [place] # (Auto) 0.7 K/mm3 (0.0-0.8) 04/19/21 00:32 Eos # (Auto) 0.1 K/mm3 (0.0-0.4) 04/19/21 00:32 Baso # (Auto) 0.1 K/mm3 (0.0-0.1) 04/19/21 00:32 Seg Neutrophils % 68.3 % (40.0-70.0) 04/19/21 00:32 Seg Neutrophils # 4.6 K/mm3 (1.8-7.7) 04/19/21 00:32 Sodium 144 mmol/L (137-145) 04/19/21 00:32 Potassium 4.0 mmol/L (3.6-5.0) 04/19/21 00:32 Chloride 104.3 mmol/L (98-107) 04/19/21 00:32 Carbon Dioxide 32 mmol/L (22-30) H D 04/19/21 00:32 Anion Gap 12 mmol/L 04/19/21 00:32 BUN 20 mg/dL (9-20) 04/19/21 00:32 Creatinine 1.1 mg/dL (0.8-1.3) 04/19/21 00:32 Estimated GFR > 60 ml/min 04/19/21 00:32 BUN/Creatinine Ratio 18 % 04/19/21 00:32 Glucose 96 mg/dL (75-100) 04/19/21 00:32 POC Glucose 104 mg/dL (70-105) 04/18/21 19:39 Hemoglobin A1c 5.6 % (4-6) 04/19/21 00:32 Calcium 9.2 mg/dL (8.4-10.2) 04/19/21 00:32 Total Bilirubin 0.40 mg/dL (0.1-1.2) 04/19/21 00:32 AST 17 units/L (5-40) 04/19/21 00:32 ALT 13 units/L (7-56) 04/19/21 00:32 Alkaline Phosphatase 117 units/L (35-129) 04/19/21 00:32 Total Protein 6.5 g/dL (6.3-8.2) 04/19/21 00:32 Albumin 4.2 g/dL (3.9-5) 04/19/21 00:32 Albumin/Globulin Ratio 1.8 % 04/19/21 00:32 Triglycerides 56 mg/dL (2-149) 04/19/21 00:32 Cholesterol 102 mg/dL (50-199) 04/19/21 00:32 LDL Cholesterol Direct 50 mg/dL (50-130) 04/19/21 00:32 HDL Cholesterol 45 mg/dL (40-59) 04/19/21 00:32 Cholesterol/HDL Ratio 2.26 % 04/19/21 00:32 TSH 6.650 mlU/mL (0.270-4.200) H 04/19/21 00:32 Hepatitis A IgM Ab Non-reactive (NonReactive) 04/19/21 00:32 Hep Bs Antigen Non-reactive (Negative) 04/19/21 00:32 Hep B Core IgM Ab Non-reactive (NonReactive) 04/19/21 00:32 Hepatitis C Antibody Non-reactive (NonReactive) 04/19/21 00:32 Last Vital Signs Temp 98.5 F 04/25/21 07:22 Pulse 69 04/25/21 09:15 Resp 18 04/25/21 07:22 BP 143/74 04/25/21 09:15 Pulse Ox 95 04/25/21 07:22
--- NOTE | 2021-04-26 08:16 | Progress Note ---
Subjective Date of service: 04/26/21 Principal diagnosis: dementia with behavioral disturbance Subjective Comment: 04/26/2021: I interviewed the patient this morning. Medical records reviewed and patient's progress was discussed with unit staff. Nursing staff reports that patient had a quiet night. In my interview with the patient this morning, the patient reports mood as "good". Appetite is good. Sleep last night was good. Patient denies current current suicidal/homicidal ideation and denies hallucinations. No changes made today. Reason for continued inpatient treatment: The patient has denied SI over the last few days. Will plan for a safe discharge to his daughter's care on Thursday if no events throughout night. REVIEW OF SYSTEMS Constitutional: Negative for weight loss ENT: Negative for stridor Respiratory: Negative for cough or hemoptysis All other systems reviewed and are negative MENTAL STATUS EXAMINATION General Appearance and Behavior: Age appropriate, wearing appropriate clothes, cooperative polite with questioning, good eye contact, cooperative Cooperation: cooperative Psychomotor Behavior: Psychomotor normal Mood: "good" Affect and affective range: congruent with stated mood Thought Process:Goal directed Thought Content: Not SI Speech: Normal volume, Regular rate and rhythm Suicidal Ideation: Denies Homicidal Ideation: Denies hallucination: Denies Delusions: None elicited Impulse Control: Intact Insight and Judgment: Limited Memory: Intact Attention: Distractible Orientation: Alert and oriented Diagnoses: Dementia with Behavioral Disturbance Treatment Plan Patient admitted for inpatient psychiatric evaluation, medication adjustment and close monitoring The patient's behavior, mood, sleep and appetite will be closely monitored. Patient enrolled in individual and group therapeutic sessions and encouraged to attend. Patient provided with a safe and structured environment. Patient's physical health needs will be addressed by the Hospitalist. Hospitalist Consulted Labs including CBC, CMP, Lipid profile and Hemoglobin A1C levels ordered for baseline reference Social Assessment will be completed and the River Boat Captain will work with patient and family to ensure a suitable and safe disposition Medication adjustment will be made as clinically indicated No changes made today Continue olanzapine 5mg po bid Continue Zoloft 25mg po daily Usual Wellness [facility]/Preservation: - Start Trazodone 50 mg po QHS & 50 mg po QHS PRN between 10 PM & 2 AM for insomnia - Start Melatonin 5 mg po QHS to promote circadian rhythm The patient agreed on the treatment plan, understood the risk, benefit, alternative treatment, potential consequence of no treatment, and gave informed consent. Estimated days: 2 Post hospital care: primary care provider, psychiatric provider Case staffed with Dr. Solares Medications and Allergies Allergies Allergy/AdvReac Type Severity Reaction Status Date / Time No Known Allergies Allergy Unverified 04/17/21 20:42 Home Medications Medication Instructions Recorded Confirmed Last Taken Type Aspirin [Aspirin BABY CHEW TAB] 81 mg PO QDAY 04/18/21 04/18/21 04/18/21 History AtorvaSTATin [Lipitor] 40 mg PO QHS 04/18/21 04/18/21 Unknown History Clopidogrel [Plavix] 75 mg PO QDAY 04/18/21 04/18/21 04/18/21 History OLANzapine [ZyPREXA] 5 mg PO BID 04/18/21 04/18/21 04/18/21 History amLODIPine 10 mg PO DAILY 04/18/21 04/18/21 04/18/21 History Active Meds: Active Medications Amlodipine Besylate (Amlodipine 10 Mg Tab) 10 mg PO DAILY [facility] Last Admin: 04/25/21 09:15 Dose: 10 mg Documented by: Aspirin (Aspirin 81 Mg Tab Chew) 81 mg PO QDAY [facility] Last Admin: 04/25/21 09:15 Dose: 81 mg Documented by: Atorvastatin Calcium (Atorvastatin 40 Mg Tab) 40 mg PO QHS [facility] Last Admin: 04/25/21 21:07 Dose: 40 mg Documented by: Clopidogrel Bisulfate (Clopidogrel 75 Mg Tab) 75 mg PO QDAY [facility] Last Admin: 04/25/21 09:15 Dose: 75 mg Documented by: Olanzapine (Olanzapine 5 Mg Tab) 5 mg PO BID [facility] Last Admin: 04/25/21 21:07 Dose: 5 mg Documented by: Sertraline HCl (Sertraline 25 Mg Tab) 25 mg PO QDAY [facility] Last Admin: 04/25/21 09:15 Dose: 25 mg Documented by: Results - Results Labs/Vitals: Laboratory Last Values WBC 6.7 K/mm3 (4.5-11.0) 04/19/21 00:32 RBC 4.88 M/mm3 (3.65-5.03) 04/19/21 00:32 Hgb 14.6 gm/dl (11.8-15.2) 04/19/21 00:32 Hct 42.2 % (35.5-45.6) 04/19/21 00:32 MCV 87 fl (84-94) 04/19/21 00:32 MCH 30 pg (28-32) 04/19/21 00:32 MCHC 35 % (32-34) H 04/19/21 00:32 RDW 14.2 % (13.2-15.2) 04/19/21 00:32 Plt Count 212 K/mm3 (140-440) 04/19/21 00:32 Lymph % (Auto) 18.3 % (13.4-35.0) 04/19/21 00:32 [place] % (Auto) 11.4 % (0.0-7.3) H 04/19/21 00:32 Eos % (Auto) 1.2 % (0.0-4.3) 04/19/21 00:32 Baso % (Auto) 0.8 % (0.0-1.8) 04/19/21 00:32 Lymph # (Auto) 1.2 K/mm3 (1.2-5.4) 04/19/21 00:32 [place] # (Auto) 0.7 K/mm3 (0.0-0.8) 04/19/21 00:32 Eos # (Auto) 0.1 K/mm3 (0.0-0.4) 04/19/21 00:32 Baso # (Auto) 0.1 K/mm3 (0.0-0.1) 04/19/21 00:32 Seg Neutrophils % 68.3 % (40.0-70.0) 04/19/21 00:32 Seg Neutrophils # 4.6 K/mm3 (1.8-7.7) 04/19/21 00:32 Sodium 144 mmol/L (137-145) 04/19/21 00:32 Potassium 4.0 mmol/L (3.6-5.0) 04/19/21 00:32 Chloride 104.3 mmol/L (98-107) 04/19/21 00:32 Carbon Dioxide 32 mmol/L (22-30) H D 04/19/21 00:32 Anion Gap 12 mmol/L 04/19/21 00:32 BUN 20 mg/dL (9-20) 04/19/21 00:32 Creatinine 1.1 mg/dL (0.8-1.3) 04/19/21 00:32 Estimated GFR > 60 ml/min 04/19/21 00:32 BUN/Creatinine Ratio 18 % 04/19/21 00:32 Glucose 96 mg/dL (75-100) 04/19/21 00:32 POC Glucose 104 mg/dL (70-105) 04/18/21 19:39 Hemoglobin A1c 5.6 % (4-6) 04/19/21 00:32 Calcium 9.2 mg/dL (8.4-10.2) 04/19/21 00:32 Total Bilirubin 0.40 mg/dL (0.1-1.2) 04/19/21 00:32 AST 17 units/L (5-40) 04/19/21 00:32 ALT 13 units/L (7-56) 04/19/21 00:32 Alkaline Phosphatase 117 units/L (35-129) 04/19/21 00:32 Total Protein 6.5 g/dL (6.3-8.2) 04/19/21 00:32 Albumin 4.2 g/dL (3.9-5) 04/19/21 00:32 Albumin/Globulin Ratio 1.8 % 04/19/21 00:32 Triglycerides 56 mg/dL (2-149) 04/19/21 00:32 Cholesterol 102 mg/dL (50-199) 04/19/21 00:32 LDL Cholesterol Direct 50 mg/dL (50-130) 04/19/21 00:32 HDL Cholesterol 45 mg/dL (40-59) 04/19/21 00:32 Cholesterol/HDL Ratio 2.26 % 04/19/21 00:32 TSH 6.650 mlU/mL (0.270-4.200) H 04/19/21 00:32 Hepatitis A IgM Ab Non-reactive (NonReactive) 04/19/21 00:32 Hep Bs Antigen Non-reactive (Negative) 04/19/21 00:32 Hep B Core IgM Ab Non-reactive (NonReactive) 04/19/21 00:32 Hepatitis C Antibody Non-reactive (NonReactive) 04/19/21 00:32 Last Vital Signs Temp 98.7 F 04/25/21 19:27 Pulse 63 04/25/21 19:27 Resp 16 04/25/21 19:27 BP 138/66 04/25/21 19:27 Pulse Ox 93 04/25/21 19:27
[2021-04-26] MEDS: ASPIRIN 81 MG TAB CHEW PO SCH (10:24)
[2021-04-26] MEDS: CLOPIDOGREL 75 MG TAB PO SCH (10:24)
[2021-04-26] MEDS: amLODIPine 10 MG TAB PO SCH (10:24)
[2021-04-26] MEDS: SERTRALINE 25 MG TAB PO SCH (10:25)
--- NOTE | 2021-04-27 08:03 | Progress Note ---
Subjective Date of service: 04/27/21 Principal diagnosis: dementia with behavioral disturbance Subjective Comment: 04/24/2021: The patient was seen today, he says he feels okay. He denies SI/HI, stating "I want to live as long as I can." He also denies hallucinations Reason for continued inpatient treatment: Although the patient denies SI, he expressed plans to overdose is the reason for his admission. Will continue to treat and monitor a few more days to ensue the patient will not carry out his plan. His daughter Aixa says he is manipulative and wants to make sure he's truly stable prior to discharge. Will continue to monitor and treat and discharge safely on Thursday if housing is secure. 04/25/2021: The patient was seen today, he says he feels okay. He states he threw up after eating roast beef. he says it has happened before doesn't want it again. The patient denies SI/HI or hallucinations of any kind. 04/26/2021: I interviewed the patient this morning. Medical records reviewed and patient's progress was discussed with unit staff. Nursing staff reports that patient had a quiet night. In my interview with the patient this morning, the patient reports mood as "good". Appetite is good. Sleep last night was good. Patient denies current current suicidal/homicidal ideation and denies hallucinations. No changes made today. 04/27/2021: The patient was seen seen in his room. He reports doing " pretty good." He states sleep and appetite as good. Per nurse, the patient had a quiet night. The patient denies any current suicidal/homicidal ideation and denies hallucinations. No changes made. Reason for continued inpatient treatment: The patient has denied SI over the last few days. Awaiting placement. REVIEW OF SYSTEMS Constitutional: Negative for weight loss ENT: Negative for stridor Respiratory: Negative for cough or hemoptysis All other systems reviewed and are negative MENTAL STATUS EXAMINATION General Appearance and Behavior: Age appropriate, wearing appropriate clothes, cooperative polite with questioning, good eye contact, cooperative Cooperation: cooperative Psychomotor Behavior: Psychomotor normal Mood: "pretty good" Affect and affective range: congruent with stated mood Thought Process:Goal directed Thought Content: Not SI Speech: Normal volume, Regular rate and rhythm Suicidal Ideation: Denies Homicidal Ideation: Denies hallucination: Denies Delusions: None elicited Impulse Control: Intact Insight and Judgment: Limited Memory: Intact Attention: Distractible Orientation: Alert and oriented Diagnoses: Dementia with Behavioral Disturbance Treatment Plan Patient admitted for inpatient psychiatric evaluation, medication adjustment and close monitoring The patient's behavior, mood, sleep and appetite will be closely monitored. Patient enrolled in individual and group therapeutic sessions and encouraged to attend. Patient provided with a safe and structured environment. Patient's physical health needs will be addressed by the Hospitalist. Hospitalist Consulted Labs including CBC, CMP, Lipid profile and Hemoglobin A1C levels ordered for baseline reference Social Assessment will be completed and the Alignment Technician will work with patient and family to ensure a suitable and safe disposition Medication adjustment will be made as clinically indicated No changes made today Continue olanzapine 5mg po bid Continue Zoloft 25mg po daily Usual Wellness [facility]/Preservation: - Start Trazodone 50 mg po QHS & 50 mg po QHS PRN between 10 PM & 2 AM for insomnia - Start Melatonin 5 mg po QHS to promote circadian rhythm The patient agreed on the treatment plan, understood the risk, benefit, alternative treatment, potential consequence of no treatment, and gave informed consent. Estimated days: 2 Post hospital care: primary care provider, psychiatric provider Case staffed with Dr. Solares Medications and Allergies Allergies Allergy/AdvReac Type Severity Reaction Status Date / Time No Known Allergies Allergy Unverified 04/17/21 20:42 Home Medications Medication Instructions Recorded Confirmed Last Taken Type Aspirin [Aspirin BABY CHEW TAB] 81 mg PO QDAY 04/18/21 04/18/21 04/18/21 History AtorvaSTATin [Lipitor] 40 mg PO QHS 04/18/21 04/18/21 Unknown History Clopidogrel [Plavix] 75 mg PO QDAY 04/18/21 04/18/21 04/18/21 History OLANzapine [ZyPREXA] 5 mg PO BID 04/18/21 04/18/21 04/18/21 History amLODIPine 10 mg PO DAILY 04/18/21 04/18/21 04/18/21 History Active Meds: Active Medications Amlodipine Besylate (Amlodipine 10 Mg Tab) 10 mg PO DAILY [facility] Last Admin: 04/26/21 10:24 Dose: 10 mg Documented by: Aspirin (Aspirin 81 Mg Tab Chew) 81 mg PO QDAY [facility] Last Admin: 04/26/21 10:24 Dose: 81 mg Documented by: Atorvastatin Calcium (Atorvastatin 40 Mg Tab) 40 mg PO QHS [facility] Last Admin: 04/26/21 21:08 Dose: 40 mg Documented by: Clopidogrel Bisulfate (Clopidogrel 75 Mg Tab) 75 mg PO QDAY [facility] Last Admin: 04/26/21 10:24 Dose: 75 mg Documented by: Olanzapine (Olanzapine 5 Mg Tab) 5 mg PO BID [facility] Last Admin: 04/26/21 21:08 Dose: 5 mg Documented by: Sertraline HCl (Sertraline 25 Mg Tab) 25 mg PO QDAY [facility] Last Admin: 04/26/21 10:25 Dose: 25 mg Documented by: Results - Results Labs/Vitals: Laboratory Last Values WBC 6.7 K/mm3 (4.5-11.0) 04/19/21 00:32 RBC 4.88 M/mm3 (3.65-5.03) 04/19/21 00:32 Hgb 14.6 gm/dl (11.8-15.2) 04/19/21 00:32 Hct 42.2 % (35.5-45.6) 04/19/21 00:32 MCV 87 fl (84-94) 04/19/21 00:32 MCH 30 pg (28-32) 04/19/21 00:32 MCHC 35 % (32-34) H 04/19/21 00:32 RDW 14.2 % (13.2-15.2) 04/19/21 00:32 Plt Count 212 K/mm3 (140-440) 04/19/21 00:32 Lymph % (Auto) 18.3 % (13.4-35.0) 04/19/21 00:32 [place] % (Auto) 11.4 % (0.0-7.3) H 04/19/21 00:32 Eos % (Auto) 1.2 % (0.0-4.3) 04/19/21 00:32 Baso % (Auto) 0.8 % (0.0-1.8) 04/19/21 00:32 Lymph # (Auto) 1.2 K/mm3 (1.2-5.4) 04/19/21 00:32 [place] # (Auto) 0.7 K/mm3 (0.0-0.8) 04/19/21 00:32 Eos # (Auto) 0.1 K/mm3 (0.0-0.4) 04/19/21 00:32 Baso # (Auto) 0.1 K/mm3 (0.0-0.1) 04/19/21 00:32 Seg Neutrophils % 68.3 % (40.0-70.0) 04/19/21 00:32 Seg Neutrophils # 4.6 K/mm3 (1.8-7.7) 04/19/21 00:32 Sodium 144 mmol/L (137-145) 04/19/21 00:32 Potassium 4.0 mmol/L (3.6-5.0) 04/19/21 00:32 Chloride 104.3 mmol/L (98-107) 04/19/21 00:32 Carbon Dioxide 32 mmol/L (22-30) H D 04/19/21 00:32 Anion Gap 12 mmol/L 04/19/21 00:32 BUN 20 mg/dL (9-20) 04/19/21 00:32 Creatinine 1.1 mg/dL (0.8-1.3) 04/19/21 00:32 Estimated GFR > 60 ml/min 04/19/21 00:32 BUN/Creatinine Ratio 18 % 04/19/21 00:32 Glucose 96 mg/dL (75-100) 04/19/21 00:32 POC Glucose 104 mg/dL (70-105) 04/18/21 19:39 Hemoglobin A1c 5.6 % (4-6) 04/19/21 00:32 Calcium 9.2 mg/dL (8.4-10.2) 04/19/21 00:32 Total Bilirubin 0.40 mg/dL (0.1-1.2) 04/19/21 00:32 AST 17 units/L (5-40) 04/19/21 00:32 ALT 13 units/L (7-56) 04/19/21 00:32 Alkaline Phosphatase 117 units/L (35-129) 04/19/21 00:32 Total Protein 6.5 g/dL (6.3-8.2) 04/19/21 00:32 Albumin 4.2 g/dL (3.9-5) 04/19/21 00:32 Albumin/Globulin Ratio 1.8 % 04/19/21 00:32 Triglycerides 56 mg/dL (2-149) 04/19/21 00:32 Cholesterol 102 mg/dL (50-199) 04/19/21 00:32 LDL Cholesterol Direct 50 mg/dL (50-130) 04/19/21 00:32 HDL Cholesterol 45 mg/dL (40-59) 04/19/21 00:32 Cholesterol/HDL Ratio 2.26 % 04/19/21 00:32 TSH 6.650 mlU/mL (0.270-4.200) H 04/19/21 00:32 Hepatitis A IgM Ab Non-reactive (NonReactive) 04/19/21 00:32 Hep Bs Antigen Non-reactive (Negative) 04/19/21 00:32 Hep B Core IgM Ab Non-reactive (NonReactive) 04/19/21 00:32 Hepatitis C Antibody Non-reactive (NonReactive) 04/19/21 00:32 Last Vital Signs Temp 98.0 F 04/26/21 22:00 Pulse 79 04/26/21 22:00 Resp 18 04/26/21 22:00 BP 141/71 04/26/21 22:00 Pulse Ox 95 04/26/21 22:00
[2021-04-27] MEDS: amLODIPine 10 MG TAB PO SCH (09:04)
[2021-04-27] MEDS: SERTRALINE 25 MG TAB PO SCH (09:04)
[2021-04-27] MEDS: CLOPIDOGREL 75 MG TAB PO SCH (09:04)
[2021-04-27] MEDS: ASPIRIN 81 MG TAB CHEW PO SCH (09:04)
--- NOTE | 2021-04-28 08:28 | Progress Note ---
Subjective Date of service: 04/28/21 Principal diagnosis: dementia with behavioral disturbance Subjective Comment: 04/24/2021: The patient was seen today, he says he feels okay. He denies SI/HI, stating "I want to live as long as I can." He also denies hallucinations Reason for continued inpatient treatment: Although the patient denies SI, he expressed plans to overdose is the reason for his admission. Will continue to treat and monitor a few more days to ensue the patient will not carry out his plan. His daughter Aixa says he is manipulative and wants to make sure he's truly stable prior to discharge. Will continue to monitor and treat and discharge safely on Thursday if housing is secure. 04/25/2021: The patient was seen today, he says he feels okay. He states he threw up after eating roast beef. he says it has happened before doesn't want it again. The patient denies SI/HI or hallucinations of any kind. 04/26/2021: I interviewed the patient this morning. Medical records reviewed and patient's progress was discussed with unit staff. Nursing staff reports that patient had a quiet night. In my interview with the patient this morning, the patient reports mood as "good". Appetite is good. Sleep last night was good. Patient denies current current suicidal/homicidal ideation and denies hallucinations. No changes made today. 04/27/2021: The patient was seen seen in his room. He reports doing " pretty good." He states sleep and appetite as good. Per nurse, the patient had a quiet night. The patient denies any current suicidal/homicidal ideation and denies hallucinations. No changes made. 04/28/2021: The patient was seen in the activity room eating breakfast. He states sleep and appetite as good. Per nurse, the patient had a quiet night except for requesting for denture adhesive. The patient denies any current suicidal/homicidal ideation and denies hallucinations. No complain. No changes made. Reason for continued inpatient treatment: Awaiting placement. REVIEW OF SYSTEMS Constitutional: Negative for weight loss ENT: Negative for stridor Respiratory: Negative for cough or hemoptysis All other systems reviewed and are negative MENTAL STATUS EXAMINATION General Appearance and Behavior: Age appropriate, wearing appropriate clothes, cooperative polite with questioning, good eye contact, cooperative Cooperation: cooperative Psychomotor Behavior: Psychomotor normal Mood: "good" Affect and affective range: congruent with stated mood Thought Process:Goal directed Thought Content: Not SI Speech: Normal volume, Regular rate and rhythm Suicidal Ideation: Denies Homicidal Ideation: Denies hallucination: Denies Delusions: None elicited Impulse Control: Intact Insight and Judgment: Limited Memory: Intact Attention: Distractible Orientation: Alert and oriented Diagnoses: Dementia with Behavioral Disturbance Treatment Plan Patient admitted for inpatient psychiatric evaluation, medication adjustment and close monitoring The patient's behavior, mood, sleep and appetite will be closely monitored. Patient enrolled in individual and group therapeutic sessions and encouraged to attend. Patient provided with a safe and structured environment. Patient's physical health needs will be addressed by the Hospitalist. Hospitalist Consulted Labs including CBC, CMP, Lipid profile and Hemoglobin A1C levels ordered for baseline reference Social Assessment will be completed and the Chemical Plant Operator will work with patient and family to ensure a suitable and safe disposition Medication adjustment will be made as clinically indicated No changes made today Continue olanzapine 5mg po bid Continue Zoloft 25mg po daily Usual Wellness Jehovah'S Witness/Preservation: - Start Trazodone 50 mg po QHS & 50 mg po QHS PRN between 10 PM & 2 AM for insomnia - Start Melatonin 5 mg po QHS to promote circadian rhythm The patient agreed on the treatment plan, understood the risk, benefit, alternative treatment, potential consequence of no treatment, and gave informed consent. Estimated days: 2 Post hospital care: primary care provider, psychiatric provider Case staffed with Dr. Solares Medications and Allergies Medications and Allergies Allergies Allergy/AdvReac Type Severity Reaction Status Date / Time No Known Allergies Allergy Unverified 04/17/21 20:42 Home Medications Medication Instructions Recorded Confirmed Last Taken Type Aspirin [Aspirin BABY CHEW TAB] 81 mg PO QDAY 04/18/21 04/18/21 04/18/21 History AtorvaSTATin [Lipitor] 40 mg PO QHS 04/18/21 04/18/21 Unknown History Clopidogrel [Plavix] 75 mg PO QDAY 04/18/21 04/18/21 04/18/21 History OLANzapine [ZyPREXA] 5 mg PO BID 04/18/21 04/18/21 04/18/21 History amLODIPine 10 mg PO DAILY 04/18/21 04/18/21 04/18/21 History Active Meds: Active Medications Amlodipine Besylate (Amlodipine 10 Mg Tab) 10 mg PO DAILY [facility] Last Admin: 04/27/21 09:04 Dose: 10 mg Documented by: Aspirin (Aspirin 81 Mg Tab Chew) 81 mg PO QDAY [facility] Last Admin: 04/27/21 09:04 Dose: 81 mg Documented by: Atorvastatin Calcium (Atorvastatin 40 Mg Tab) 40 mg PO QHS [facility] Last Admin: 04/27/21 21:34 Dose: 40 mg Documented by: Clopidogrel Bisulfate (Clopidogrel 75 Mg Tab) 75 mg PO QDAY [facility] Last Admin: 04/27/21 09:04 Dose: 75 mg Documented by: Olanzapine (Olanzapine 5 Mg Tab) 5 mg PO BID [facility] Last Admin: 04/27/21 21:34 Dose: 5 mg Documented by: Sertraline HCl (Sertraline 25 Mg Tab) 25 mg PO QDAY [facility] Last Admin: 04/27/21 09:04 Dose: 25 mg Documented by: Results - Results Labs/Vitals: Laboratory Last Values WBC 6.7 K/mm3 (4.5-11.0) 04/19/21 00:32 RBC 4.88 M/mm3 (3.65-5.03) 04/19/21 00:32 Hgb 14.6 gm/dl (11.8-15.2) 04/19/21 00:32 Hct 42.2 % (35.5-45.6) 04/19/21 00:32 MCV 87 fl (84-94) 04/19/21 00:32 MCH 30 pg (28-32) 04/19/21 00:32 MCHC 35 % (32-34) H 04/19/21 00:32 RDW 14.2 % (13.2-15.2) 04/19/21 00:32 Plt Count 212 K/mm3 (140-440) 04/19/21 00:32 Lymph % (Auto) 18.3 % (13.4-35.0) 04/19/21 00:32 [place] % (Auto) 11.4 % (0.0-7.3) H 04/19/21 00:32 Eos % (Auto) 1.2 % (0.0-4.3) 04/19/21 00:32 Baso % (Auto) 0.8 % (0.0-1.8) 04/19/21 00:32 Lymph # (Auto) 1.2 K/mm3 (1.2-5.4) 04/19/21 00:32 [place] # (Auto) 0.7 K/mm3 (0.0-0.8) 04/19/21 00:32 Eos # (Auto) 0.1 K/mm3 (0.0-0.4) 04/19/21 00:32 Baso # (Auto) 0.1 K/mm3 (0.0-0.1) 04/19/21 00:32 Seg Neutrophils % 68.3 % (40.0-70.0) 04/19/21 00:32 Seg Neutrophils # 4.6 K/mm3 (1.8-7.7) 04/19/21 00:32 Sodium 144 mmol/L (137-145) 04/19/21 00:32 Potassium 4.0 mmol/L (3.6-5.0) 04/19/21 00:32 Chloride 104.3 mmol/L (98-107) 04/19/21 00:32 Carbon Dioxide 32 mmol/L (22-30) H D 04/19/21 00:32 Anion Gap 12 mmol/L 04/19/21 00:32 BUN 20 mg/dL (9-20) 04/19/21 00:32 Creatinine 1.1 mg/dL (0.8-1.3) 04/19/21 00:32 Estimated GFR > 60 ml/min 04/19/21 00:32 BUN/Creatinine Ratio 18 % 04/19/21 00:32 Glucose 96 mg/dL (75-100) 04/19/21 00:32 POC Glucose 104 mg/dL (70-105) 04/18/21 19:39 Hemoglobin A1c 5.6 % (4-6) 04/19/21 00:32 Calcium 9.2 mg/dL (8.4-10.2) 04/19/21 00:32 Total Bilirubin 0.40 mg/dL (0.1-1.2) 04/19/21 00:32 AST 17 units/L (5-40) 04/19/21 00:32 ALT 13 units/L (7-56) 04/19/21 00:32 Alkaline Phosphatase 117 units/L (35-129) 04/19/21 00:32 Total Protein 6.5 g/dL (6.3-8.2) 04/19/21 00:32 Albumin 4.2 g/dL (3.9-5) 04/19/21 00:32 Albumin/Globulin Ratio 1.8 % 04/19/21 00:32 Triglycerides 56 mg/dL (2-149) 04/19/21 00:32 Cholesterol 102 mg/dL (50-199) 04/19/21 00:32 LDL Cholesterol Direct 50 mg/dL (50-130) 04/19/21 00:32 HDL Cholesterol 45 mg/dL (40-59) 04/19/21 00:32 Cholesterol/HDL Ratio 2.26 % 04/19/21 00:32 TSH 6.650 mlU/mL (0.270-4.200) H 04/19/21 00:32 Hepatitis A IgM Ab Non-reactive (NonReactive) 04/19/21 00:32 Hep Bs Antigen Non-reactive (Negative) 04/19/21 00:32 Hep B Core IgM Ab Non-reactive (NonReactive) 04/19/21 00:32 Hepatitis C Antibody Non-reactive (NonReactive) 04/19/21 00:32 Last Vital Signs Temp 98.5 F 04/27/21 19:41 Pulse 71 04/27/21 19:41 Resp 16 04/27/21 19:41 BP 136/67 04/27/21 19:41 Pulse Ox 92 04/27/21 19:41
[2021-04-28] MEDS: CLOPIDOGREL 75 MG TAB PO SCH (09:30)
[2021-04-28] MEDS: SERTRALINE 25 MG TAB PO SCH (09:30)
[2021-04-28] MEDS: ASPIRIN 81 MG TAB CHEW PO SCH (09:30)
[2021-04-28] MEDS: amLODIPine 10 MG TAB PO SCH (09:31)
--- NOTE | 2021-04-29 07:50 | Progress Note ---
Subjective Date of service: 04/29/21 Principal diagnosis: dementia with behavioral disturbance Subjective Comment: 04/24/2021: The patient was seen today, he says he feels okay. He denies SI/HI, stating "I want to live as long as I can." He also denies hallucinations 04/25/2021: The patient was seen today, he says he feels okay. He states he threw up after eating roast beef. he says it has happened before doesn't want it again. The patient denies SI/HI or hallucinations of any kind. 04/26/2021: I interviewed the patient this morning. Medical records reviewed and patient's progress was discussed with unit staff. Nursing staff reports that patient had a quiet night. In my interview with the patient this morning, the patient reports mood as "good". Appetite is good. Sleep last night was good. Patient denies current current suicidal/homicidal ideation and denies hallucinations. No changes made today. 04/27/2021: The patient was seen seen in his room. He reports doing " pretty goo d." He states sleep and appetite as good. Per nurse, the patient had a quiet night. The patient denies any current suicidal/homicidal ideation and denies hallucinations. No changes made. 04/28/2021: The patient was seen in the activity room eating breakfast. He states sleep and appetite as good. Per nurse, the patient had a quiet night except for requesting for denture adhesive. The patient denies any current suicidal/homicidal ideation and denies hallucinations. No complain. No changes made. 04/29/2021: The patient was seen in the activity room waiting for breakfast. The patient reports mood as good. He states sleep and appetite as good. He denies any current suicidal/homicidal ideation and denies hallucinations. Per nurse, the patient had a quiet night. No changes made today. Reason for continued inpatient treatment: Awaiting placement. REVIEW OF SYSTEMS Constitutional: Negative for weight loss ENT: Negative for stridor Respiratory: Negative for cough or hemoptysis All other systems reviewed and are negative MENTAL STATUS EXAMINATION General Appearance and Behavior: Age appropriate, wearing appropriate clothes, cooperative polite with questioning, good eye contact, cooperative Cooperation: cooperative Psychomotor Behavior: Psychomotor normal Mood: "good" Affect and affective range: congruent with stated mood Thought Process:Goal directed Thought Content: Not SI Speech: Normal volume, Regular rate and rhythm Suicidal Ideation: Denies Homicidal Ideation: Denies hallucination: Denies Delusions: None elicited Impulse Control: Intact Insight and Judgment: Limited Memory: Intact Attention: Distractible Orientation: Alert and oriented Diagnoses: Dementia with Behavioral Disturbance Treatment Plan Patient admitted for inpatient psychiatric evaluation, medication adjustment and close monitoring The patient's behavior, mood, sleep and appetite will be closely monitored. Patient enrolled in individual and group therapeutic sessions and encouraged to attend. Patient provided with a safe and structured environment. Patient's physical health needs will be addressed by the Hospitalist. Hospitalist Consulted Labs including CBC, CMP, Lipid profile and Hemoglobin A1C levels ordered for baseline reference Social Assessment will be completed and the Clinical Safety Specialist will work with patient and family to ensure a suitable and safe disposition Medication adjustment will be made as clinically indicated No changes made today Continue olanzapine 5mg po bid Continue Zoloft 25mg po daily Usual Wellness Worship/Preservation: - Start Trazodone 50 mg po QHS & 50 mg po QHS PRN between 10 PM & 2 AM for insomnia - Start Melatonin 5 mg po QHS to promote circadian rhythm The patient agreed on the treatment plan, understood the risk, benefit, alterna tive treatment, potential consequence of no treatment, and gave informed consent. Estimated days: 2 Post hospital care: primary care provider, psychiatric provider Case staffed with Dr. Solares Medications and Allergies Medications and Allergies Allergies Allergy/AdvReac Type Severity Reaction Status Date / Time No Known Allergies Allergy Unverified 04/17/21 20:42 Home Medications Medication Instructions Recorded Confirmed Last Taken Type Aspirin [Aspirin BABY CHEW TAB] 81 mg PO QDAY 04/18/21 04/18/21 04/18/21 History AtorvaSTATin [Lipitor] 40 mg PO QHS 04/18/21 04/18/21 Unknown History Clopidogrel [Plavix] 75 mg PO QDAY 04/18/21 04/18/21 04/18/21 History OLANzapine [ZyPREXA] 5 mg PO BID 04/18/21 04/18/21 04/18/21 History amLODIPine 10 mg PO DAILY 04/18/21 04/18/21 04/18/21 History Active Meds: Active Medications Amlodipine Besylate (Amlodipine 10 Mg Tab) 10 mg PO DAILY [facility] Last Admin: 04/28/21 09:31 Dose: 10 mg Documented by: Aspirin (Aspirin 81 Mg Tab Chew) 81 mg PO QDAY [facility] Last Admin: 04/28/21 09:30 Dose: 81 mg Documented by: Atorvastatin Calcium (Atorvastatin 40 Mg Tab) 40 mg PO QHS [facility] Last Admin: 04/28/21 21:04 Dose: 40 mg Documented by: Clopidogrel Bisulfate (Clopidogrel 75 Mg Tab) 75 mg PO QDAY [facility] Last Admin: 04/28/21 09:30 Dose: 75 mg Documented by: Olanzapine (Olanzapine 5 Mg Tab) 5 mg PO BID [facility] Last Admin: 04/28/21 21:04 Dose: 5 mg Documented by: Sertraline HCl (Sertraline 25 Mg Tab) 25 mg PO QDAY [facility] Last Admin: 04/28/21 09:30 Dose: 25 mg Documented by: Results - Results Labs/Vitals: Laboratory Last Values WBC 6.7 K/mm3 (4.5-11.0) 04/19/21 00:32 RBC 4.88 M/mm3 (3.65-5.03) 04/19/21 00:32 Hgb 14.6 gm/dl (11.8-15.2) 04/19/21 00:32 Hct 42.2 % (35.5-45.6) 04/19/21 00:32 MCV 87 fl (84-94) 04/19/21 00:32 MCH 30 pg (28-32) 04/19/21 00:32 MCHC 35 % (32-34) H 04/19/21 00:32 RDW 14.2 % (13.2-15.2) 04/19/21 00:32 Plt Count 212 K/mm3 (140-440) 04/19/21 00:32 Lymph % (Auto) 18.3 % (13.4-35.0) 04/19/21 00:32 [place] % (Auto) 11.4 % (0.0-7.3) H 04/19/21 00:32 Eos % (Auto) 1.2 % (0.0-4.3) 04/19/21 00:32 Baso % (Auto) 0.8 % (0.0-1.8) 04/19/21 00:32 Lymph # (Auto) 1.2 K/mm3 (1.2-5.4) 04/19/21 00:32 [place] # (Auto) 0.7 K/mm3 (0.0-0.8) 04/19/21 00:32 Eos # (Auto) 0.1 K/mm3 (0.0-0.4) 04/19/21 00:32 Baso # (Auto) 0.1 K/mm3 (0.0-0.1) 04/19/21 00:32 Seg Neutrophils % 68.3 % (40.0-70.0) 04/19/21 00:32 Seg Neutrophils # 4.6 K/mm3 (1.8-7.7) 04/19/21 00:32 Sodium 144 mmol/L (137-145) 04/19/21 00:32 Potassium 4.0 mmol/L (3.6-5.0) 04/19/21 00:32 Chloride 104.3 mmol/L (98-107) 04/19/21 00:32 Carbon Dioxide 32 mmol/L (22-30) H D 04/19/21 00:32 Anion Gap 12 mmol/L 04/19/21 00:32 BUN 20 mg/dL (9-20) 04/19/21 00:32 Creatinine 1.1 mg/dL (0.8-1.3) 04/19/21 00:32 Estimated GFR > 60 ml/min 04/19/21 00:32 BUN/Creatinine Ratio 18 % 04/19/21 00:32 Glucose 96 mg/dL (75-100) 04/19/21 00:32 POC Glucose 104 mg/dL (70-105) 04/18/21 19:39 Hemoglobin A1c 5.6 % (4-6) 04/19/21 00:32 Calcium 9.2 mg/dL (8.4-10.2) 04/19/21 00:32 Total Bilirubin 0.40 mg/dL (0.1-1.2) 04/19/21 00:32 AST 17 units/L (5-40) 04/19/21 00:32 ALT 13 units/L (7-56) 04/19/21 00:32 Alkaline Phosphatase 117 units/L (35-129) 04/19/21 00:32 Total Protein 6.5 g/dL (6.3-8.2) 04/19/21 00:32 Albumin 4.2 g/dL (3.9-5) 04/19/21 00:32 Albumin/Globulin Ratio 1.8 % 04/19/21 00:32 Triglycerides 56 mg/dL (2-149) 04/19/21 00:32 Cholesterol 102 mg/dL (50-199) 04/19/21 00:32 LDL Cholesterol Direct 50 mg/dL (50-130) 04/19/21 00:32 HDL Cholesterol 45 mg/dL (40-59) 04/19/21 00:32 Cholesterol/HDL Ratio 2.26 % 04/19/21 00:32 TSH 6.650 mlU/mL (0.270-4.200) H 04/19/21 00:32 Hepatitis A IgM Ab Non-reactive (NonReactive) 04/19/21 00:32 Hep Bs Antigen Non-reactive (Negative) 04/19/21 00:32 Hep B Core IgM Ab Non-reactive (NonReactive) 04/19/21 00:32 Hepatitis C Antibody Non-reactive (NonReactive) 04/19/21 00:32 Last Vital Signs Temp 98.2 F 04/28/21 07:33 Pulse 65 04/28/21 09:31 Resp 18 04/28/21 07:33 BP 140/71 04/28/21 09:31 Pulse Ox 94 04/28/21 07:33
[2021-04-29 09:42] VITALS: BP 145/78
[2021-04-29] MEDS: CLOPIDOGREL 75 MG TAB PO SCH (11:02)
[2021-04-29] MEDS: SERTRALINE 25 MG TAB PO SCH (11:03)
[2021-04-29] MEDS: amLODIPine 10 MG TAB PO SCH (11:04)
[2021-04-29] MEDS: ASPIRIN 81 MG TAB CHEW PO SCH (11:04)
--- NOTE | 2021-04-29 12:02 | Discharge Summary ---
Providers - Providers Date of Admission: 04/18/21 17:43 Date of discharge: 04/29/21 Attending physician: NINA MCKEON MD 04/18/21 16:37 Consult to Physician [CONS] Routine Comment: . Consulting Provider: JUNE TARIQ Physician Instructions: Reason For Exam: manage medical condition Primary care physician: TELEVISION MECHANIC Hospitalization Reason for admission: AMS/ Dementia Condition: Stable Hospital course: The patient was provided inpatient psychiatric treatment with safe and supportive environment, group/individual therapy, psychiatric medication, medication adjustment, adverse effect monitor, medical evaluation, medical treatment, social service assessment, social support meeting, placement ass essment and psycho-education. The patients mood, cognition, behavior, motivation, compliance to treatment and appreciation on family/social support are improved and stabilized. At the time of discharge, the patient had no suicidal ideas, no homicidal ideas, no aggressive thoughts, no endangering behavior and no debilitating adverse effects. The patient agreed on the treatment plan, understood the risk, benefit, alternative treatment, potential consequence of no treatment, and gave informed consent. Progress notes: 04/24/2021: The patient was seen today, he says he feels okay. He denies SI/HI, stating "I want to live as long as I can." He also denies hallucinations 04/25/2021: The patient was seen today, he says he feels okay. He states he threw up after eating roast beef. he says it has happened before doesn't want it again. The patient denies SI/HI or hallucinations of any kind. 04/26/2021: I interviewed the patient this morning. Medical records reviewed and patient's progress was discussed with unit staff. Nursing staff reports that patient had a quiet night. In my interview with the patient this morning, the patient reports mood as "good". Appetite is good. Sleep last night was good. Patient denies current current suicidal/homicidal ideation and denies hallucinations. No changes made today. 04/27/2021: The patient was seen seen in his room. He reports doing " pretty good." He states sleep and appetite as good. Per nurse, the patient had a quiet night. The patient denies any current suicidal/homicidal ideation and denies hallucinations. No changes made. 04/28/2021: The patient was seen in the activity room eating breakfast. He states sleep and appetite as good. Per nurse, the patient had a quiet night except for requesting for denture adhesive. The patient denies any current suicidal/homicidal ideation and denies hallucinations. No complain. No changes made. 04/29/2021: The patient was seen in the activity room waiting for breakfast. The patient reports mood as good. He states sleep and appetite as good. He denies any current suicidal/homicidal ideation and denies hallucinations. Per nurse, the patient had a quiet night. No changes made today. Disposition: [id number] HOME UNDER HOME [facility] Allergies/Adverse Reactions: Allergies No Known Allergies Allergy (Unverified 04/17/21 20:42) Vital Signs: Last Vital Signs Temp 97.8 F 04/29/21 08:00 Pulse 66 04/29/21 11:04 Resp 18 04/29/21 08:00 BP 145/78 04/29/21 11:04 Pulse Ox 94 04/28/21 07:33 Last Lab: Laboratory Last Values WBC 6.7 K/mm3 (4.5-11.0) 04/19/21 00:32 RBC 4.88 M/mm3 (3.65-5.03) 04/19/21 00:32 Hgb 14.6 gm/dl (11.8-15.2) 04/19/21 00:32 Hct 42.2 % (35.5-45.6) 04/19/21 00:32 MCV 87 fl (84-94) 04/19/21 00:32 MCH 30 pg (28-32) 04/19/21 00:32 MCHC 35 % (32-34) H 04/19/21 00:32 RDW 14.2 % (13.2-15.2) 04/19/21 00:32 Plt Count 212 K/mm3 (140-440) 04/19/21 00:32 Lymph % (Auto) 18.3 % (13.4-35.0) 04/19/21 00:32 [place] % (Auto) 11.4 % (0.0-7.3) H 04/19/21 00:32 Eos % (Auto) 1.2 % (0.0-4.3) 04/19/21 00:32 Baso % (Auto) 0.8 % (0.0-1.8) 04/19/21 00:32 Lymph # (Auto) 1.2 K/mm3 (1.2-5.4) 04/19/21 00:32 [place] # (Auto) 0.7 K/mm3 (0.0-0.8) 04/19/21 00:32 Eos # (Auto) 0.1 K/mm3 (0.0-0.4) 04/19/21 00:32 Baso # (Auto) 0.1 K/mm3 (0.0-0.1) 04/19/21 00:32 Seg Neutrophils % 68.3 % (40.0-70.0) 04/19/21 00:32 Seg Neutrophils # 4.6 K/mm3 (1.8-7.7) 04/19/21 00:32 Sodium 144 mmol/L (137-145) 04/19/21 00:32 Potassium 4.0 mmol/L (3.6-5.0) 04/19/21 00:32 Chloride 104.3 mmol/L (98-107) 04/19/21 00:32 Carbon Dioxide 32 mmol/L (22-30) H D 04/19/21 00:32 Anion Gap 12 mmol/L 04/19/21 00:32 BUN 20 mg/dL (9-20) 04/19/21 00:32 Creatinine 1.1 mg/dL (0.8-1.3) 04/19/21 00:32 Estimated GFR > 60 ml/min 04/19/21 00:32 BUN/Creatinine Ratio 18 % 04/19/21 00:32 Glucose 96 mg/dL (75-100) 04/19/21 00:32 POC Glucose 104 mg/dL (70-105) 04/18/21 19:39 Hemoglobin A1c 5.6 % (4-6) 04/19/21 00:32 Calcium 9.2 mg/dL (8.4-10.2) 04/19/21 00:32 Total Bilirubin 0.40 mg/dL (0.1-1.2) 04/19/21 00:32 AST 17 units/L (5-40) 04/19/21 00:32 ALT 13 units/L (7-56) 04/19/21 00:32 Alkaline Phosphatase 117 units/L (35-129) 04/19/21 00:32 Total Protein 6.5 g/dL (6.3-8.2) 04/19/21 00:32 Albumin 4.2 g/dL (3.9-5) 04/19/21 00:32 Albumin/Globulin Ratio 1.8 % 04/19/21 00:32 Triglycerides 56 mg/dL (2-149) 04/19/21 00:32 Cholesterol 102 mg/dL (50-199) 04/19/21 00:32 LDL Cholesterol Direct 50 mg/dL (50-130) 04/19/21 00:32 HDL Cholesterol 45 mg/dL (40-59) 04/19/21 00:32 Cholesterol/HDL Ratio 2.26 % 04/19/21 00:32 TSH 6.650 mlU/mL (0.270-4.200) H 04/19/21 00:32 Hepatitis A IgM Ab Non-reactive (NonReactive) 04/19/21 00:32 Hep Bs Antigen Non-reactive (Negative) 04/19/21 00:32 Hep B Core IgM Ab Non-reactive (NonReactive) 04/19/21 00:32 Hepatitis C Antibody Non-reactive (NonReactive) 04/19/21 00:32 Core Measure Documentation - Palliative Care Palliative Care/ Comfort Measures: Not Applicable - Core Measures Any of the following diagnoses?: none Exam - Constitutional Vitals: Temp Pulse Resp BP Pulse Ox 97.8 F 66 18 145/78 94 04/29/21 08:00 04/29/21 11:04 04/29/21 08:00 04/29/21 11:04 04/28/21 07:33 General appearance: Present: no acute distress - Psychiatric Psychiatric: appropriate mood/affect, cooperative Plan Activity: advance as tolerated Weight Bearing Status: Weight Bear as Tolerated Diet: regular Care Plan Goals: Maintain good and stable mental health. Plan of Treatment: The patient should be compliant with medications, not to use drugs and not to drink alcohol. The patient understands that if suicidal ideas, homicidal ideas, or any endangering thoughts arise, the patient should immediately seek for emergent assistance including but not limited to crisis hot line and emergency room. Follow up with outpatient Psychiatrist and PCP within 7 - 14 days of discharge. Follow up with: PRIMARY CARE,MD [Primary Care Provider] - 7 Days Prescriptions: Sertraline [Zoloft] 25 mg PO QDAY 30 Days #30 tablet OLANzapine [ZyPREXA] 5 mg PO BID 30 Days #60
== END 2021-04-29 18:15 | disposition home or self-care (01) | DRG 884 ==
LOC: 3A 15:39 → UNDOADMIN 15:39 → 5A 17:43
PROVIDERS: ADMIT Psychiatry & Neurology Psychiatry; ATTEND Psychiatry & Neurology Psychiatry
DX: F01.51 Vascular dementia, unspecified severity, with behavioral disturbance (principal); I10 Essential (primary) hypertension; I67.2 Cerebral atherosclerosis; Z86.73 Personal history of transient ischemic attack (TIA), and cerebral infarction without residual deficits; R94.6 Abnormal results of thyroid function studies; E78.2 Mixed hyperlipidemia
CPT/HCPCS: 36415; 70450; 71045; 80048; 80053; 80061; 80074; 80307; 80320; 81001; 82962; 83036; 84443; 85025; 93005; G0378; A9270-GY; G0480; U0003